=== PATIENT | female | born 1955 | race Caucasian/White ===

== ENCOUNTER → 2016-03-12 | Outpatient (CLI) | payer OTHER ==
[~2016-03-12] VITALS: Ht 167.6 cm; Wt 77.1 kg
[~2016-03-12] MED LIST: *BLDWK1; *BLDWK2; *BLDWK7; *CPAPSUP; *CXR; *MAMMOGRAM; /ADVA50050 INH; /TIOT18INH; /TIOT18INH INH; ACCOLATE PO; ACET65TA OR; ADVAIR200 INHALATION; ALBU17IN2 IN; ALBU17IN2 INH; ALBUTEROL; ALBUTEROL INHALATION; ALTACE10 PO; AMO250 PO; AMO500; AMO500 PO; ASTELIN; ASTELIN NASAL; BACTROOINT TOPICALLY; CAHNTIXC PO; CALC500T49; CHAN0.5P PO; CIPR25SS OR; CIPRO500; COMBIVENT PO; COZA25TA8 PO; DOXYCYC100 PO; EFFE75CA75 PO; EFFEXORXL1 PO; EFFEXORXL3 PO; EFFEXORXL7 PO; EPIPENAD INJECTION; FISH1000 PO; FISHCAP; FLAG500T OR; FLON0.05; HABITROL2 TOPICAL; HCTZ25 PO; HYDR25TA6; HYDR25TA6 OR; HYDR25TAB PO; KEFLEX500 PO; LAMISIL250 PO; LEVAQUI500 PO; LIDOCAINE 2% INJ 100 MG/5 ML SDV (FOR ANES.) As Ordered ONE; LOSA100T36 PO; MULT1TAB10 PO; NORV5TAB; NORVASC10 PO; NORVASC5 PO; OSPH1TAB PO; PHOSOMAX PO; PROPOFOL 200 MG/20 ML VIAL As Ordered ONE; PROTONIX40; PROVERA10 PO; PULMICORT; QVAR80AE7 IN; RESTASIS OU; SEREVENTIN PO; SING10TA31 PO; SING10TA32 PO; SINGULAI10 PO; SPIR25TA2 OR; SPIR25TA2 PO; SPIRIVA INH; SYMB16INH INH; TEMOVATEOI TOPICAL; TESSALO100 PO; THERGRAN PO; TIOT18INH INH; TOPA50TA7 PO; TRAZ50TA; TUMS500C OR; ULTRAM50; ULTRAM50 PO; VITA250C PO; VITA500046 PO; VITA50TA12; WELLBSR150 PO; XOPENEX125 NEB; ZOLO50TA PO; ZOLOFT100; ZOLOFT25 PO; ZOLOFT50 PO; [UNRECOGNIZED DRUG - CODE] PO; [UNRECOGNIZED DRUG - CODE] TOPICALLY; [UNRECOGNIZED DRUG - OTHER]; [UNRECOGNIZED DRUG - SUPPLY]; calcium citrate PO
[2016-03-12] MEDS: NS 1,000 ML IV SCH ×2 (07:00→08:07)
--- NOTE | 2016-03-12 08:32 | ROOR ---
Patient Name: Lynnette Navarro Procedure Date: 03/12/2016 8:19 AM Date of : 1955 Age: 60 Room: [facility] Gender: Female Note Status: Finalized Procedure: Upper GI endoscopy Indications: Suspected esophageal reflux Providers: Alejandro Hernandes Jr, MD Referring MD: Delmar Newman MD Requesting Provider: Medicines: Propofol per Anesthesia Complications: No immediate complications. Procedure: Pre-Anesthesia Assessment: - Prior to the procedure, a History and Physical was performed, and patient medications and allergies were reviewed. The patient is competent. The risks and benefits of the procedure and the sedation options and risks were discussed with the patient. All questions were answered and informed consent was obtained. Patient identification and proposed procedure were verified by the physician and the nurse in the pre-procedure area and in the procedure room. Mental Status Examination: alert and oriented. Airway Examination: normal oropharyngeal airway and neck mobility. Respiratory Examination: clear to auscultation. CV Examination: normal. ASA Grade Assessment: II - A patient with mild systemic disease. After reviewing the risks and benefits, the patient was deemed in satisfactory condition to undergo the procedure. The anesthesia plan was to use moderate sedation / analgesia (conscious sedation). Immediately prior to administration of medications, the patient was re-assessed for adequacy to receive sedatives. The heart rate, respiratory rate, oxygen saturations, blood pressure, adequacy of pulmonary ventilation, and response to care were monitored throughout the procedure. The physical status of the patient was re-assessed after the procedure. The Endoscope was introduced through the mouth, and advanced to the second part of duodenum. The upper GI endoscopy was accomplished without difficulty. The patient tolerated the procedure well. Findings: The upper third of the esophagus, middle third of the esophagus and lower third of the esophagus were normal. Diffuse severe inflammation characterized by congestion (edema), erythema, friability and mucus was found in the cardia, in the gastric fundus, in the gastric body, in the gastric antrum, in the prepyloric region of the stomach and at the pylorus. Biopsies were taken with a cold forceps for histology. The duodenal bulb, first portion of the duodenum and second portion of the duodenum were normal. Impression: - Normal upper third of esophagus, middle third of esophagus and lower third of esophagus. - Gastritis. Biopsied. - Normal duodenal bulb, first portion of the duodenum and second portion of the duodenum. Recommendation: - Discharge patient to home (ambulatory). - Return to my office in 2 weeks. Alejandro Hernandes MD Alejandro Hernandes Jr, MD 03/12/2016 8:32:11 AM This report has been signed electronically. Number of Addenda: 0 Note Initiated On: 03/12/2016 8:19 AM Estimated Blood Loss: Estimated blood loss: none.
--- NOTE | 2016-03-12 08:46 | ROOR ---
Patient Name: Lynnette Navarro Procedure Date: 03/12/2016 8:21 AM Date of : 1955 Age: 60 Room: [facility] Gender: Female Note Status: Finalized Procedure: Colonoscopy Indications: Rectal bleeding Providers: Alejandro Hernandes Jr, MD Referring MD: Delmar Newman MD Requesting Provider: Medicines: Propofol per Anesthesia Complications: No immediate complications. Procedure: Pre-Anesthesia Assessment: - Prior to the procedure, a History and Physical was performed, and patient medications and allergies were reviewed. The patient is competent. The risks and benefits of the procedure and the sedation options and risks were discussed with the patient. All questions were answered and informed consent was obtained. Patient identification and proposed procedure were verified by the physician and the nurse in the pre-procedure area and in the procedure room. Mental Status Examination: alert and oriented. Airway Examination: normal oropharyngeal airway and neck mobility. Respiratory Examination: clear to auscultation. CV Examination: normal. ASA Grade Assessment: II - A patient with mild systemic disease. After reviewing the risks and benefits, the patient was deemed in satisfactory condition to undergo the procedure. The anesthesia plan was to use moderate sedation / analgesia (conscious sedation). Immediately prior to administration of medications, the patient was re-assessed for adequacy to receive sedatives. The heart rate, respiratory rate, oxygen saturations, blood pressure, adequacy of pulmonary ventilation, and response to care were monitored throughout the procedure. The physical status of the patient was re-assessed after the procedure. The Colonoscope was introduced through the anus and advanced to the cecum, identified by appendiceal orifice and ileocecal valve. The colonoscopy was performed without difficulty. The patient tolerated the procedure well. The quality of the bowel preparation was adequate and good. Findings: The perianal and digital rectal examinations were normal. Pertinent negatives include normal sphincter tone, no palpable rectal lesions and no anal lesion or abnormality was detected. Multiple small and large-mouthed diverticula were found in the sigmoid colon, descending colon, transverse colon and ascending colon. The rectum, cecum, appendiceal orifice and ileocecal valve appeared normal. The perianal exam findings include non-thrombosed internal hemorrhoids, internal hemorrhoids that prolapse with straining, but spontaneously regress to the resting position (Grade II) and internal hemorrhoids that prolapse with straining, but require manual replacement into the anal canal (Grade III). Impression: - Diverticulosis in the sigmoid colon, in the descending colon, in the transverse colon and in the ascending colon. - The rectum, cecum, appendiceal orifice and ileocecal valve are normal. - Non-thrombosed internal hemorrhoids, internal hemorrhoids that prolapse with straining, but spontaneously regress to the resting position (Grade II) and internal hemorrhoids that prolapse with straining, but require manual replacement into the anal canal (Grade III) found on perianal exam. - No specimens collected. Recommendation: - Discharge patient to home (ambulatory). - Repeat colonoscopy in 10 years for screening purposes. Alejandro Hernandes MD Alejandro Hernandes Jr, MD 03/12/2016 8:46:00 AM This report has been signed electronically. Number of Addenda: 0 Note Initiated On: 03/12/2016 8:21 AM Estimated Blood Loss: Estimated blood loss: none.
[2016-03-12 09:03] VITALS: BP 156/99
== END | disposition home or self-care (01) ==
LOC: M OPP 07:33
PROVIDERS: ATTEND Surgery
DX: K57.30 Diverticulosis of large intestine without perforation or abscess without bleeding (principal); K64.1 Second degree hemorrhoids; K64.2 Third degree hemorrhoids; K29.70 Gastritis, unspecified, without bleeding; I10 Essential (primary) hypertension; F43.10 Post-traumatic stress disorder, unspecified; F41.9 Anxiety disorder, unspecified; F33.9 Major depressive disorder, recurrent, unspecified; M19.90 Unspecified osteoarthritis, unspecified site; J44.9 Chronic obstructive pulmonary disease, unspecified; G47.30 Sleep apnea, unspecified; F17.200 Nicotine dependence, unspecified, uncomplicated; F17.228 Nicotine dependence, chewing tobacco, with other nicotine-induced disorders; Z79.899 Other long term (current) drug therapy; Z79.51 Long term (current) use of inhaled steroids; Z88.8 Allergy status to other drugs, medicaments and biological substances; Z91.030 Bee allergy status; Z88.5 Allergy status to narcotic agent

== ENCOUNTER → 2016-06-26 | Outpatient (REF) | payer OTHER ==
[~2016-06-26] MED LIST changes: -LIDOCAINE 2% INJ 100 MG/5 ML SDV (FOR ANES.) As Ordered ONE; -PROPOFOL 200 MG/20 ML VIAL As Ordered ONE
[2016-06-26 13:44] LABS: MEAN CORPUSCULAR HEMOGLOBIN 36.3 pg (27.0-33.0); MEAN CORPUSCULAR HGB CONC 33.1 g/dl (32.0-36.5); MEAN CORPUSCULAR VOLUME 109.8 fl (80.0-96.0); RED CELL DISTRIBUTION WIDTH 12.5 % (11.5-14.5); WHITE BLOOD COUNT 6.6 K/mm3 (4.0-10.0)
[2016-06-26 13:56] LABS: ALBUMIN 3.9 GM/DL (3.2-5.2); ALBUMIN/GLOBULIN RATIO 1.18 (1.00-1.93); ALKALINE PHOSPHATASE 84 U/L (45-117); ALT/SGPT 31 U/L (12-78); ANION GAP 10 MEQ/L (8-16); AST/SGOT 19 U/L (15-37); BILIRUBIN,TOTAL 0.8 MG/DL (0.2-1.0); BLOOD UREA NITROGEN 12 MG/DL (7-18); CALCIUM LEVEL 9.6 MG/DL (8.8-10.2); CARBON DIOXIDE LEVEL 28 MEQ/L (21-32); CHLORIDE LEVEL 103 MEQ/L (98-107); CREATININE FOR GFR 0.62 MG/DL (0.55-1.02); FREE T4 0.88 NG/DL (0.76-1.46); GLOMERULAR FILTRATION RATE > 60.0 (>45); GLUCOSE, FASTING 115 MG/DL (80-110); POTASSIUM SERUM 3.4 MEQ/L (3.5-5.1); SODIUM LEVEL 141 MEQ/L (136-145); TOTAL PROTEIN 7.2 GM/DL (6.4-8.2)
== END ==
LOC: M SFHCPLAZ 11:09
PROVIDERS: ATTEND Physician Assistant
DX: F32.9 Major depressive disorder, single episode, unspecified (principal); I10 Essential (primary) hypertension; R43.9 Unspecified disturbances of smell and taste

== ENCOUNTER → 2016-12-29 | Outpatient (CLI) | payer OTHER ==
[~2016-12-29] MED LIST changes: +QVAR1AER2 IN; -QVAR80AE7 IN; -TOPA50TA7 PO; +TOPA50TA8 PO
--- NOTE | 2016-12-29 16:08 | REPMRS ---
Patient History The patient states she had a clinical breast exam in 12/2016. Patient is postmenopausal and is nulliparous. No known family history of cancer. Taking estrogen for 2 years 3 months. Digital Woman Screen Mammo: December 29, 2016 - Exam #: [id number] Bilateral CC and MLO view(s) were taken. Technologist: Lindsey Camejo, Technologist Prior study comparison: December 27, 2015, digital woman screen mammo performed at [facility]. December 25, 2014, digital woman screen mammo performed at [facility]. FINDINGS: The breast tissue is heterogeneously dense. This may lower the sensitivity of mammography. There has been no change in the appearance of the mammogram from the prior studies. There is a moderate amount of residual fibroglandular tissue which is fairly symmetric. There is no interval development of dominant mass, areas of architectural distortion, or clustered microcalcification typical of malignancy. ASSESSMENT: BI-RADS/ACR category 1 mammogram. Negative. Recommendation Routine screening mammogram in 1 year (for women over age 40). This mammogram was interpreted with the aid of an FDA-approved computer-aided dectection system. Electronically Signed By: Raghav Sarmiento MD 12/29/16 [id number]
--- NOTE | 2016-12-31 11:19 | DEXA ---
AP SPINE L1 - L4 1.161 -0.3 1.1 LT FEMUR TOTAL 0.769 -1.9 -0.9 RT FEMUR TOTAL 0.696 -2.5 -1.4 TOTAL BODY TOTAL OTHER DUAL FEMUR FRAX* ASSESSMENT Risk factors: 10 year probability of fracture Major osteoporotic fracture % Hip fracture % COMMENTS: Normal bone densitometry of the spine. There is low bone density of the hips. The decreased density of the spine does represent a significant change. The decreased density of the left hip does represent significant change. The decreased density of the right hip does represent a significant change. The density of the spine has increased 3.5 % since the initial exam on to 2005. The spine density has decreased 11.2 % since the most recent exam on 12/25/2014. The density of the left hip has decreased 7.3 % since the initial exam on 2005. The density of the left hip has decreased 5.9 % since the most recent exam on . The density of the right hip has decreased 11.7 % since the initial exam on . The density of the right hip has decreased 9.5 % since the most recent exam on 12/25/2014. FOLLOW-UP: Recommendation for the next bone density exam: 2 years. JAMIE
== END ==
LOC: M WHC 14:25
PROVIDERS: ATTEND Nurse Practitioner Family
DX: Z12.31 Encounter for screening mammogram for malignant neoplasm of breast (principal); M85.80 Other specified disorders of bone density and structure, unspecified site

== ENCOUNTER → 2016-12-30 | Outpatient (CLI) | payer OTHER ==
--- NOTE | 2016-12-31 08:26 | REP ---
LEFT HIP, TWO VIEWS: HISTORY: Pain. There is no acute fracture or dislocation. The joint space is normal in appearance. IMPRESSION: There is no acute fracture or dislocation. Signed by Tobias Morales MD 12/31/2016 08:57 A
--- NOTE | 2016-12-31 08:46 | REP ---
Clinical: Pain. Technique: Neutral and frog lateral views of the femur. Findings: In conjunction with the left hip series performed on the same day, mild degenerative change to the left hip include minimal joint space narrowing and increase sclerosis to the acetabular roof. No significant osteophytosis or periarticular calcifications are identified. No acute fracture or dislocation. Impression: Mild age-related degenerative changes at the left hip joint. Signed by Corby St MD 12/31/2016 08:38 A
== END ==
LOC: M ADAMS 14:23
PROVIDERS: ATTEND Physician Assistant
DX: M25.552 Pain in left hip (principal); M16.12 Unilateral primary osteoarthritis, left hip

== ENCOUNTER → 2017-06-29 | Outpatient (REF) | payer BC ==
[2017-06-29 19:10] LABS: HEMATOCRIT 42.6 % (36.0-47.0); HEMOGLOBIN 14.1 g/dl (12.0-15.5); MEAN CORPUSCULAR HEMOGLOBIN 36.1 pg (27.0-33.0); MEAN CORPUSCULAR HGB CONC 33.1 g/dl (32.0-36.5); PLATELET COUNT, AUTOMATED 237 10^3/uL (150-450); RED BLOOD COUNT 3.91 10^6/uL (4.00-5.40); RED CELL DISTRIBUTION WIDTH 14.4 % (11.5-14.5); WHITE BLOOD COUNT 7.3 10^3/uL (4.0-10.0)
[2017-06-29 19:24] LABS: TOTAL 25(OH) VITAMIN D 29.9 NG/ML (30.0-100.0)
[2017-06-29 19:48] LABS: ALBUMIN 3.9 GM/DL (3.2-5.2); ALBUMIN/GLOBULIN RATIO 1.08 (1.00-1.93); ALKALINE PHOSPHATASE 76 U/L (45-117); ALT/SGPT 42 U/L (12-78); ANION GAP 7 MEQ/L (8-16); AST/SGOT 26 U/L (7-37); BILIRUBIN,TOTAL 0.5 MG/DL (0.2-1.0); BLOOD UREA NITROGEN 12 MG/DL (7-18); CALCIUM LEVEL 9.5 MG/DL (8.8-10.2); CARBON DIOXIDE LEVEL 29 MEQ/L (21-32); CHLORIDE LEVEL 105 MEQ/L (98-107); CHOLESTEROL LEVEL 227 MG/DL (<200); CHOLESTEROL RISK RATIO 2.026 (<5); CREATININE FOR GFR 0.51 MG/DL (0.55-1.30); FREE T4 0.86 NG/DL (0.76-1.46); GLOMERULAR FILTRATION RATE > 60.0 (>45); GLUCOSE, FASTING 102 MG/DL (70-100); HDL CHOLESTEROL 112 MG/DL (>40); LDL CHOLESTEROL 93.4 MG/DL (<100); NON-HDL-C 115 MG/DL; POTASSIUM SERUM 3.7 MEQ/L (3.5-5.1); SODIUM LEVEL 141 MEQ/L (136-145); THYROID STIMULATING HORMONE 0.584 uIU/ML (0.358-3.740); TOTAL PROTEIN 7.5 GM/DL (6.4-8.2); TRIGLYCERIDES LEVEL 108 MG/DL (<150)
[2017-06-30 11:08] LABS: HEPATITIS C VIRUS ABY INDEX < 0.0 INDEX (<0.8)
== END ==
LOC: M SFHCADAM 14:49
DX: Z87.898 Personal history of other specified conditions (principal); R73.01 Impaired fasting glucose; E78.2 Mixed hyperlipidemia; M25.552 Pain in left hip; Z11.59 Encounter for screening for other viral diseases
CPT/HCPCS: 84443

== ENCOUNTER → 2017-12-30 | Outpatient (CLI) | payer BC | LOC: M WHC 14:35 | DX: Z12.31 Encounter for screening mammogram for malignant neoplasm of breast (principal); Z78.0 Asymptomatic menopausal state; Z92.23 Personal history of estrogen therapy | CPT/HCPCS: 77067 ==

== ENCOUNTER → 2017-12-30 | Outpatient (REF) | payer BC ==
[2018-01-04 10:21] LABS: HPV HYBRID CAPTURE II Negative (Negative)
== END ==
LOC: M SFHCWAGY 15:08
DX: Z01.419 Encounter for gynecological examination (general) (routine) without abnormal findings (principal)
CPT/HCPCS: G0123

== ENCOUNTER → 2018-02-25 | Outpatient (CLI) | payer OTHER ==
[~2018-02-25] MED LIST changes: +EFFE75CA2 PO; -EFFE75CA75 PO; -LOSA100T36 PO; +LOSA100T50 PO; -QVAR1AER2 IN; +QVAR80AE10 IN
--- NOTE | 2018-02-25 16:41 | REP ---
Chest two views HISTORY: COPD Comparison: 12/18/2016 An increase in interstitial markings is present in the lungs consistent with chronic interstitial fibrosis. Patchy density is present in the right lower lobe consistent with an infiltrate. The heart is normal in size. The pulmonary vasculature is normal in appearance. The bony structure is intact. IMPRESSION: 1. Chronic interstitial fibrosis. 2. Right lower lobe infiltrate. Electronically Signed by Tobias Morales MD 02/25/2018 04:33 P
== END ==
LOC: M WUC 15:02
PROVIDERS: ATTEND Internal Medicine Pulmonary Disease
DX: J44.9 Chronic obstructive pulmonary disease, unspecified (principal)

== ENCOUNTER 2018-05-17 18:42 | Inpatient (IN) | payer OTHER ==
[~2018-05-17] VITALS: Ht 167.6 cm; Wt 81.8 kg
[~2018-05-17 18:42] MED LIST changes: -/ADVA50050 INH; -/TIOT18INH; -/TIOT18INH INH; +ADVA1AER2 INH; +SPIR1CAP; +SPIR1CAP INH
[2018-05-17] MEDS ORDERED: ONDANSETRON 4MG/2ML VIAL (J2405) As Ordered ONE (19:12)
[2018-05-17] MEDS ORDERED: ETOMIDATE INJ 20MG/10ML VIAL IV ONE (19:15)
[2018-05-17] MEDS ORDERED: PROPOFOL 1,000 MG in APPROPRIATE DILUENT 1 EA IV SCH (19:15)
[2018-05-17] MEDS ORDERED: ONDANSETRON 4MG/2ML VIAL (J2405) IV ONE (19:15)
[2018-05-17] MEDS ORDERED: SUCCINYLCHOLINE INJ 200 MG/10 ML VIAL (J0330) IV ONE (19:15)
[2018-05-17 19:29] LABS: BASO # 0.1 10^3/uL (0.0-0.2); BASO % 1.3 % (0.0-1.0); EOS # 0.1 10^3/uL (0.0-0.50); HEMATOCRIT 26.7 % (36.0-47.0); HEMOGLOBIN 8.5 g/dl (12.0-15.5); LYMPH % 41.9 % (24.0-44.0); MEAN CORPUSCULAR HEMOGLOBIN 34.8 pg (27.0-33.0); MEAN CORPUSCULAR HGB CONC 31.8 g/dl (32.0-36.5); MEAN CORPUSCULAR VOLUME 109.4 fl (80.0-96.0); MONO # 0.6 10^3/uL (0.0-0.8); MONO % 12.3 % (0.0-5.0); NEUTROPHILS # 1.9 10^3/uL (1.8-7.7); NEUTROPHILS % 41.3 % (36.0-66.0); PLATELET COUNT, AUTOMATED 130 10^3/uL (150-450); RED BLOOD COUNT 2.44 10^6/uL (4.00-5.40); WHITE BLOOD COUNT 4.7 10^3/uL (4.0-10.0)
--- NOTE | 2018-05-17 19:50 | REP ---
Clinical: Tube placement. Comparison: 02/25/2018. Findings: Endotracheal tube 3.3 cm above the heather. Nasogastric tube courses below left hemidiaphragm. Mediastinum and cardiac silhouette are stable and within normal limits for portable technique. Lung jean baptiste demonstrate diffuse chronic interstitial changes superimposed pulmonary vascular congestion and interstitial edema as well as possible scattered atelectasis (right greater than left) cannot be excluded. No effusion. No pneumothorax. Skeletal structures stable. Impression: 1. Endotracheal tube and nasogastric tube in satisfactory position. 2. Diffuse chronic changes similar to prior examination. 3. Cannot exclude superimposed pulmonary vascular congestion/interstitial edema as well as scattered atelectasis (right greater than left). Electronically Signed by Corby St MD 05/17/2018 07:42 P
[2018-05-17 19:58] LABS: ALT/SGPT 31 U/L (12-78); BILIRUBIN,DIRECT < 0.1 MG/DL (0.0-0.2); BILIRUBIN,TOTAL 0.2 MG/DL (0.2-1.0); BLOOD UREA NITROGEN 14 MG/DL (7-18); CALCIUM LEVEL 8.7 MG/DL (8.8-10.2); CARBON DIOXIDE LEVEL 26 MEQ/L (21-32); CHLORIDE LEVEL 107 MEQ/L (98-107); CPK CREATINE PHOSPHOKINASE 102 U/L (26-192); CREATININE FOR GFR 0.67 MG/DL (0.55-1.30); ETHYL ALCOHOL (ETHANOL) 0.213 % (0.000-0.010); GLOMERULAR FILTRATION RATE > 60.0 (>45); GLUCOSE, FASTING 109 MG/DL (70-100); POTASSIUM SERUM 4.1 MEQ/L (3.5-5.1); SODIUM LEVEL 140 MEQ/L (136-145); TOTAL PROTEIN 7.9 GM/DL (6.4-8.2)
[2018-05-17 20:00] LABS: ABG BASE EXCESS -3.5 (-2.0-2.0); ABG HCO3 28.3 MEQ/L (22.0-26.0); ABG O2 SATURATION 95.7 % (95.0-99.0); ABG PARTIAL PRESSURE O2 96.6 mmHg (75.0-100.0); ABG STANDARD HCO3 21.6 MEQ/L (22.0-26.0); ABG TOTAL CO2 30.9 MEQ/L (23.0-31.0)
[2018-05-17 20:03] LABS: ABG PARTIAL PRESSURE CO2 83.3 mmHg (35.0-45.0); ABG pH (ARTERIAL) 7.149 UNITS (7.350-7.450)
[2018-05-17 20:17] LABS: AMPHETAMINES LEVEL URINE NEGATIVE (NEGATIVE); BARBITURATES URINE NEGATIVE (NEGATIVE); BENZODIAZEPINES URINE NEGATIVE (NEGATIVE); CANNABINOIDS URINE NEGATIVE (NEGATIVE); COCAINE METABOLITE URINE NEGATIVE (NEGATIVE); METHADONE URINE NEGATIVE (NEGATIVE); OPIATES URINE NEGATIVE (NEGATIVE); PHENCYCLIDINE URINE NEGATIVE (NEGATIVE)
[2018-05-17 20:18] LABS: OSMOLALITY SERUM 353 MOSM/KG (280-301)
[2018-05-17 20:20] LABS: ACETAMINOPHEN LEVEL < 2.0 UG/ML (10.0-30.0); SALICYLATE LEVEL 2.1 MG/DL (5.0-30.0)
[2018-05-17] MEDS ORDERED: CHARCOAL ACTIVATED LIQUID 25 GM/120 ML BTL PO ONE (20:30)
[2018-05-17] MEDS ORDERED: SODIUM BICARBONATE 8.4% INJ 50 ML SYRINGE IV STA (20:56)
--- NOTE | 2018-05-17 21:01 | REP ---
Clinical: Trauma . Comparison: 10/15/2007 Findings: Age-related atrophy with periventricular leukomalacia and microvascular ischemic changes are appreciated. The ventricles and sulci are symmetric. Sarmiento-white differentiation is maintained. There is no evidence for acute intracranial hemorrhage, mass/mass effect, pathology or infarction. No extra-axial fluid collection. Calvarium is intact. Paranasal sinuses and mastoid air cells are clear. Impression: Age related atrophy and microvascular ischemic changes. No acute intracranial hemorrhage, infarction, or mass/mass effect. Electronically Signed by Corby St MD 05/17/2018 08:53 P
--- NOTE | 2018-05-17 21:03 | REP ---
Clinical: Trauma. Technique: Axial noncontrast images from the skull base to the thoracic inlet with coronal and sagittal re-formations. Findings: Moderate/early advanced multilevel degenerative disc osteophyte complexes are appreciated primarily involving C5-6 and C6-7. Alignment and lordosis maintained. No acute fracture / compression injury or subluxation. Spinal canal is patent. Posterior elements and spinous processes are intact. Paravertebral soft tissues are normal. Endotracheal tube and nasogastric tubes identified. Impression: Moderate/early advanced multilevel degenerative spondylosis. No acute fracture / compression injury or subluxation. Electronically Signed by Corby St MD 05/17/2018 08:55 P
[2018-05-17 21:04] LABS: ABG BASE EXCESS -7.3 (-2.0-2.0); ABG HCO3 18.1 MEQ/L (22.0-26.0); ABG O2 SATURATION 92.5 % (95.0-99.0); ABG PARTIAL PRESSURE O2 78.7 mmHg (75.0-100.0); ABG STANDARD HCO3 18.5 MEQ/L (22.0-26.0); ABG TOTAL CO2 19.2 MEQ/L (23.0-31.0); ABG pH (ARTERIAL) 7.319 UNITS (7.350-7.450)
[2018-05-17 21:14] LABS: CPK CREATINE PHOSPHOKINASE 92 U/L (26-192); MB/CK RELATIVE INDEX 2.72 (< OR =4); TROPONIN I 0.04 NG/ML (< 0.10)
[2018-05-17] MEDS ORDERED: EFFE150C2 PO (21:51)
[2018-05-17] MEDS ORDERED: VENTAER INH (21:52)
[2018-05-17] MEDS ORDERED: ESTR62CR PV (21:52)
[2018-05-17] MEDS ORDERED: EPIP0.3I2 IM (21:52)
[2018-05-17] MEDS ORDERED: QVAR80AE8 INH (21:52)
[2018-05-17] MEDS ORDERED: SPIR12.9 INH (21:52)
[2018-05-17] MEDS ORDERED: MORPHINE 4 MG/ML 1ML VIAL/SYRINGE (J2270) IV PRN (22:00)
--- NOTE | 2018-05-17 23:12 | HPE ---
DATE OF SERVICE: 05/17/2018 Critical care time was 1 hour. This excludes all procedures. I was called attend Ms. Lynnette Navarro in the emergency room. Ms. Navarro has known history of suicidal attempts, prior history of severe pancreatitis, recurring prolonged mechanical ventilation and tracheostomy in 2006 who presents to the emergency room with inability to protect her airway and altered mental status consistent with toxic encephalopathy. She has a history of having an argument with her and found a bottle of Tylenol PM at bedside. She has attempted Tylenol overdoses in the past. I have corrected her osmolar gap for alcohol and there is no elevation in the osmolar gap. There is no evidence of other significant toxicities other than ethyl alcohol. The patient is on propofol. Head CT and neck CT performed as outlined below. It appears that the ingestion is likely greater than four hours ago. The patient has received charcoal through and nasogastric (NG) tube in the emergency room. Acetaminophen level is less than 2.0 at this point in time. PAST MEDICAL HISTORY: A reported history of: 1. Asthma. 2. Chronic obstructive pulmonary disease (COPD) in an old research of records and she has seen Dr. Akhtar in the past. 3. A history of severe obstructive sleep apnea reportedly on bilevel noninvasive therapy. 4. Hypertension with history of hypertensive heart disease with normal systolic function. 5. History of pancreatic pseudocyst. 6. 2006 pancreatitis with prolonged hospitalization and tracheostomy. 7. A history of multiple overdoses 2007, 2010. 8. Post-traumatic stress disorder (PTSD). 9. Splenectomy. 10. Cholecystectomy. 11. Depression. HOME MEDICATIONS LIST: Includes: - albuterol - Qvar - Symbicort - vitamin D - fish oil - hydrochlorothiazide (HCTZ) 25 mg by mouth daily - losartan 100 mg by mouth daily - multivitamin 1 tablet by mouth daily - montelukast 10 mg by mouth daily - Senna 60 mg by mouth daily - Restasis 1 drop each eye twice a day - Spiriva 1 inhalation daily - Topamax 50 mg by mouth twice a day - Effexor 75 mg by mouth daily - calcium citrate 1600 mg by mouth daily REVIEW OF SYSTEMS: Unobtainable. FAMILY HISTORY: Unobtainable. SOCIAL HISTORY: Unobtainable. PHYSICAL EXAMINATION: VITAL SIGNS: Temperature 99.4, pulse is 122 in a sinus rhythm, respiratory rate is 20, blood pressure is 116/79 with an oxygen saturation of 95% on 0.60 FiO2. GENERAL: The patient is sedated on mechanical ventilation. Propofol is running. HEENT: The pupils are sluggish to react but approximately 3 mm and equal. Sclerae clear and anicteric. Mucous membranes are moist. Tongue is midline. NECK: Supple. No tracheal deviation or mass. LYMPH: No cervical, supraclavicular or axillary adenopathy. CARDIAC: Regular S1, S2 without audible murmur, rub or gallop. Point of maximum impulse (PMI) is not displaced. There is no significant systemic edema. PULMONARY: Clear to auscultation without rales, rhonchi or wheezes. No accessory muscle use. No dullness to percussion. ABDOMEN: The abdomen is soft, nontender. Hypoactive bowel sounds with no discernible hepatosplenomegaly. No masses or hernia. Previously well healed scars. EXTREMITIES: No cyanosis or clubbing. SKIN: Pale without rash, jaundice or bruising. MUSCULOSKELETAL: No evidence of joint effusions or recent fracture. NEUROLOGICAL: No unilateral weakness. No myoclonus. Reflexes are hyporeflexic at patellar and brachioradialis. No tremor. Pupils are sluggish but reactive and symmetric. Oculocephalic is abnormal. Corneals are intact. She is not responding to any stimuli. LABORATORY EVALUATION: Shows a pH of 7.32, pCO2 of 36, PO2 of 79. White blood cell (WBC) of 4.7, hemoglobin of 8.5, platelet count of 130. Sodium of 140, potassium 4.1, chloride 107, bicarbonate of 26, BUN of 14, creatinine of 0.67 with a glucose of 109. Serum osmolality is 335. As I mentioned above calculated osmolar gap is 4.4. Ethyl alcohol level is 0.213 with a salicylate level of 2.1, acetaminophen level that is undetectable. A urinalysis (UA) is fairly unremarkable with 2+ protein. Chest x-ray shows some vascular congestion and abnormal peripheral nonspecific patchy infiltrate without significant evidence of pneumonia. No evidence of aspiration. Lungs do not appear hyperinflated. The cardiac silhouette is shifted likely from positioning with the chest x-ray. Head and neck CT reports no evidence of trauma. No evidence of hemorrhage. IMPRESSION: 1. Respiratory failure from metabolic and toxic encephalopathy from overdose. Likely from diphenhydramine. Will continue to monitor for recovery. At that point in time there are no signs of Tylenol toxicity. She is below the nomogram for treatment however will check her Tylenol level in four hours to ensure that she does not require any acetylcysteine. At that point in time t here is no evidence of organ dysfunction other than her metabolic toxic encephalopathy. 2. Anemia. Will continue to monitor for blood loss. Not clear of the exact etiology. 3. Nutrition. Will start tube feeds in the morning as she has recently received charcoal. 4. History of alcohol abuse. May require treatment for detoxification if remains in hospital. 5. Deep vein thrombosis (DVT) prophylaxis with Lovenox. 6. Gastrointestinal (GI) prophylaxis with Protonix. 7. Asthma. Will continue nebulizer therapy while on mechanical ventilation. No evidence of bronchospasm on examination currently. 8. A history of hypertension. Will hold antihypertensives. Currently blood pressure is 116/79 and adequately controlled.
[2018-05-17 23:33] VITALS: BP 90/58
[2018-05-17 23:45] VITALS: BP 106/58
[2018-05-18] VITALS (21 sets, daily range): BP systolic 93–187; BP diastolic 60–104; O2SAT 96–98
[2018-05-18] MEDS: MIDAZOLAM INJ 2 MG/2 ML VIAL (J2250) IV PRN ×3 (00:11→06:21)
[2018-05-18] MEDS: PROPOFOL 1,000 MG in APPROPRIATE DILUENT 1 EA IV SCH ×2 (00:12→08:16)
[2018-05-18 06:12] LABS: ABG BASE EXCESS 1.1 (-2.0-2.0); ABG HCO3 26.8 MEQ/L (22.0-26.0); ABG O2 SATURATION 99.2 % (95.0-99.0); ABG PARTIAL PRESSURE CO2 46.4 mmHg (35.0-45.0); ABG PARTIAL PRESSURE O2 158.2 mmHg (75.0-100.0); ABG STANDARD HCO3 25.5 MEQ/L (22.0-26.0); ABG TOTAL CO2 28.2 MEQ/L (23.0-31.0); ABG pH (ARTERIAL) 7.379 UNITS (7.350-7.450)
[2018-05-18 06:31] LABS: HEMATOCRIT 44.4 % (36.0-47.0); HEMOGLOBIN 14.4 g/dl (12.0-15.5); MEAN CORPUSCULAR HEMOGLOBIN 34.2 pg (27.0-33.0); MEAN CORPUSCULAR HGB CONC 32.4 g/dl (32.0-36.5); MEAN CORPUSCULAR VOLUME 105.5 fl (80.0-96.0); PLATELET COUNT, AUTOMATED 238 10^3/uL (150-450); RED BLOOD COUNT 4.21 10^6/uL (4.00-5.40); WHITE BLOOD COUNT 7.6 10^3/uL (4.0-10.0)
--- NOTE | 2018-05-18 06:42 | ECGEPIP ---
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
[2018-05-18 06:43] LABS: INR 0.96; PROTHROMBIN TIME 12.9 SECONDS (12.1-14.4)
[2018-05-18 06:58] LABS: ACETAMINOPHEN LEVEL < 2.0 UG/ML (10.0-30.0); ALBUMIN 3.1 GM/DL (3.2-5.2); ALT/SGPT 28 U/L (12-78); BILIRUBIN,TOTAL 0.3 MG/DL (0.2-1.0); BLOOD UREA NITROGEN 24 MG/DL (7-18); CALCIUM LEVEL 8.5 MG/DL (8.8-10.2); CARBON DIOXIDE LEVEL 28 MEQ/L (21-32); CHLORIDE LEVEL 106 MEQ/L (98-107); CHOLESTEROL LEVEL 179 MG/DL (< 200); CPK CREATINE PHOSPHOKINASE 88 U/L (26-192); CREATININE FOR GFR 1.36 MG/DL (0.55-1.30); GLOMERULAR FILTRATION RATE 41.8 (>45); GLUCOSE, FASTING 76 MG/DL (70-100); LDH LACTATE DEHYDROGENASE 155 U/L (84-246); PHOSPHORUS LEVEL 4.7 MG/DL (2.5-4.9); POTASSIUM SERUM 4.3 MEQ/L (3.5-5.1); SODIUM LEVEL 142 MEQ/L (136-145); TOTAL PROTEIN 5.7 GM/DL (6.4-8.2); TRIGLYCERIDES LEVEL 303 MG/DL (<150)
--- NOTE | 2018-05-18 08:03 | REP ---
Portable chest x-ray: Single view. History: Respiratory failure. Comparison study: May 17, 2018. Findings: Endotracheal tube remains in good position just above the transverse aorta. NG tube enters the left upper quadrant of the abdomen. EKG electrodes and oxygen delivery tubing are seen. Cardiac mediastinal silhouette is unchanged. There are is pleural thickening on the right and some linear opacity consistent with discoid atelectasis versus fibrosis. Mild pleuroparenchymal fibrosis is seen at both bases. No new infiltrate. Electronically Signed by Fidel Jaramillo MD 05/18/2018 07:54 A
[2018-05-18] MEDS: IPRATROPIUM 0.5MG/ALBUTEROL 2.5MG INH SOL UD 3ML (DUONEB)(J7620) NEB SCH ×4 (08:13→20:00)
--- NOTE | 2018-05-18 08:13 | ECGEPIP ---
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
[2018-05-18] MEDS: ENOXAPARIN 40 MG/0.4 ML SYRINGE (J1650) SC SCH (08:16)
[2018-05-18] MEDS: PANTOPRAZOLE 40MG INJ (PROTONIX) (C9113) IV SCH (08:16)
[2018-05-18] MEDS ORDERED: LOSARTAN 50 MG TAB PO SCH (09:00)
[2018-05-18] MEDS ORDERED: NS 500 ML IV ONE ×2 (09:00→10:15)
[2018-05-18] MEDS ORDERED: CHLORHEXIDINE GLUCONATE 0.12 % 15ML UDC (PERIDEX ORAL RINSE) MT SCH (09:00)
[2018-05-18] MEDS ORDERED: hydroCHLOROthiazide 25 MG TAB PO SCH (09:00)
--- NOTE | 2018-05-18 09:43 | ECGEPIP ---
Stationary ECG Study 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
--- NOTE | 2018-05-18 11:39 | CCN ---
DATE OF SERVICE: 05/18/2018 Ms. Navarro is seen in the ICU. She was intubated after respiratory failure secondary to metabolic and toxic encephalopathy secondary to overdose. It was felt the patient was intoxicated with alcohol. Her initial ethyl alcohol was 0.213. She has apparently overdosed on Tylenol the past; however, her acetaminophen levels remained less than 2.0. The patient was given a sedation vacation this morning. She was able to follow commands and vent settings were changed to pressure support and the patient was able to breathe on her own. PHYSICAL EXAMINATION: VITALS: Temperature is 99.1, pulse 91, respiratory rate 23, blood pressure is 170/84, pulse ox 91%. The patient initially was on ventilator on volume control and was changed to pressure support settings and did well. Initial urine output this morning was low at some about 25 mL over 2 hours and the patient was given a fluid bolus and urine output improved to 100 mL an hour. HEENT: Head is normocephalic, atraumatic. Moist mucous membranes. Pupils are dilated. Patient is initially intubated. NECK: Supple. No cervical lymphadenopathy. No jugular venous distention (JVD). Trachea is midline. HEART: Regular rate and rhythm. S1-S2, systolic murmur. PULMONARY: Clear to auscultation bilaterally. Some wheezes are noted after extubation. ABDOMEN: Positive bowel sounds, soft, nontender. No rebound or guarding. Small abdominal hernia, central abdominal hernia. EXTREMITIES: No clubbing, cyanosis or edema. LABS: WBC 7.6, hemoglobin 14.4, hematocrit 44.4, platelets 238. Sodium 142, potassium 4.3, chloride 106, carbon dioxide 28, BUN 24, creatinine 1.36, glucose 76, calcium 8.5, phosphorus 4.7, total bili 0.3, AST 26, ALT 28, alk phos 82, LD 155, CK 88, total protein 5.7, albumin 3.1, triglycerides 303, cholesterol 179. ABG pH 7.379, pCO2 is 46.4, pO2 is 158.2, HCO3 26.8. PT 12.9, INR 0.96. Chest x-ray shows endotracheal tube is in good position. There is blunting of the bilateral costophrenic angles and some discoid atelectasis of the right lung. ASSESSMENT/PLAN 1. Overdose. The patient was initially intubated but was extubated and did well upon extubation. Still does have some wheezing after extubation. Will continue with scheduled nebs. Will add back her Symbicort and her Singulair and Spiriva. She also is on QVAR as an outpatient, which we do not have on formulary. Therefore, she will be placed on Flovent. The patient will require a sitter. She will possibly require a psychiatric consult. I have discussed this with Dr. Newman who will be taking over and addressing those issues. 2. Acute renal insufficiency. The patient was given a bolus of fluids. The urine output did improve after fluid bolus. 3. Hypertension. The patient's blood pressures were elevated; however, her renal function has gone up some. She is normally on hydrochlorothiazide and losartan; however, due to the elevated creatinine we will hold off restarting those. I have discussed the case with Dr. Newman who be taking the patient on his service. He will determine antihypertensive medications.
[2018-05-18] MEDS: SYMBICORT 160/4.5MCG INHALER 6GM INH SCH ×2 (11:44→21:09)
[2018-05-18] MEDS: FLUTICASONE HFA 220 MCG 12 GM INHALER (FLOVENT) INH SCH ×2 (11:44→21:00)
[2018-05-18] MEDS: TIOTROPIUM INHALER/CAPSULE (SPIRIVA) INH SCH (11:44)
--- NOTE | 2018-05-18 14:49 | CR ---
DATE OF CONSULTATION: 05/18/2018 Lynnette is seen in the intensive care unit (ICU). Case was discussed with Dr. Cutler and KRISTIN Chavira. Her care has been transferred to [facility]. I followed Lynnette for over 25 years. She has a history of alcoholism and goes on frequent binges. I met with her , Gregor, who is very supportive and has seen her through a lot of these episodes. He does not think the patient took an intentional overdose. He also does not think that she took an unintentional overdose. He noted that she had an empty bottle of Tylenol PM but it could have just been the end of that bottle and indeed her acetaminophen levels have been undetectable. It is my impression and he concurs that she probably did not take an intentional overdose and that this was alcohol intoxication with unintentional overdose of prescription medications. The only changes I am making at this point is adding clonidine for her elevated blood pressure. I am holding her diuretics and losartan in the face of her mild acute kidney injury. She has a history of sever asthma so I am avoiding beta blockers to treat the blood pressure. I ordered some Ativan based on Clinical [place] Withdrawal Assessment (CIWA) protocol. I expect she will move out of the ICU tomorrow. Dr. Rios will be assuming her care tomorrow.
[2018-05-18] MEDS: THIAMINE 100 MG TAB PO SCH ×2 (15:19→22:08)
[2018-05-18] MEDS: FOLIC ACID 1 MG TAB PO SCH (15:20)
[2018-05-18] MEDS: MULTIVITAMINS/MINERALS THERAP 1 TAB PO SCH (15:20)
[2018-05-18] MEDS: cloNIDine 0.1 MG TAB PO SCH ×2 (15:20→22:08)
[2018-05-18] MEDS: ACETAMINOPHEN TAB 650MG DOSE (2X325MG) PO PRN ×2 (15:24→22:08)
[2018-05-18] MEDS: MONTELUKAST 10 MG TAB PO SCH (22:09)
[2018-05-18] MEDS: ALBUTEROL 90 MCG/ACT 8GM HFA INHALER INH PRN (22:22)
[2018-05-19 06:00] VITALS: BP 136/86
[2018-05-19 06:16] LABS: HEMATOCRIT 44.8 % (36.0-47.0); HEMOGLOBIN 14.2 g/dl (12.0-15.5); MEAN CORPUSCULAR HEMOGLOBIN 33.7 pg (27.0-33.0); MEAN CORPUSCULAR HGB CONC 31.7 g/dl (32.0-36.5); MEAN CORPUSCULAR VOLUME 106.4 fl (80.0-96.0); PLATELET COUNT, AUTOMATED 245 10^3/uL (150-450); RED BLOOD COUNT 4.21 10^6/uL (4.00-5.40); WHITE BLOOD COUNT 10.2 10^3/uL (4.0-10.0)
[2018-05-19 06:30] VITALS: BP 136/86
[2018-05-19 06:39] LABS: ALBUMIN 2.9 GM/DL (3.2-5.2); ALT/SGPT 22 U/L (12-78); BILIRUBIN,TOTAL 0.7 MG/DL (0.2-1.0); BLOOD UREA NITROGEN 10 MG/DL (7-18); CALCIUM LEVEL 8.6 MG/DL (8.8-10.2); CARBON DIOXIDE LEVEL 32 MEQ/L (21-32); CHLORIDE LEVEL 106 MEQ/L (98-107); CHOLESTEROL LEVEL 139 MG/DL (< 200); CPK CREATINE PHOSPHOKINASE 68 U/L (26-192); CREATININE FOR GFR 0.58 MG/DL (0.55-1.30); GLOMERULAR FILTRATION RATE > 60.0 (>45); GLUCOSE, FASTING 94 MG/DL (70-100); LDH LACTATE DEHYDROGENASE 169 U/L (84-246); PHOSPHORUS LEVEL 2.9 MG/DL (2.5-4.9); POTASSIUM SERUM 3.2 MEQ/L (3.5-5.1); SODIUM LEVEL 142 MEQ/L (136-145); TRIGLYCERIDES LEVEL 125 MG/DL (<150)
[2018-05-19] MEDS: ACETAMINOPHEN TAB 650MG DOSE (2X325MG) PO PRN ×4 (06:39→22:00)
[2018-05-19] MEDS: FLUTICASONE HFA 220 MCG 12 GM INHALER (FLOVENT) INH SCH ×2 (07:51→18:30)
[2018-05-19] MEDS: TIOTROPIUM INHALER/CAPSULE (SPIRIVA) INH SCH (07:51)
[2018-05-19] MEDS: IPRATROPIUM 0.5MG/ALBUTEROL 2.5MG INH SOL UD 3ML (DUONEB)(J7620) NEB SCH ×5 (07:51→21:56)
[2018-05-19] MEDS: SYMBICORT 160/4.5MCG INHALER 6GM INH SCH ×2 (08:00→18:30)
[2018-05-19] MEDS: cloNIDine 0.1 MG TAB PO SCH (08:52)
[2018-05-19] MEDS: ENOXAPARIN 40 MG/0.4 ML SYRINGE (J1650) SC SCH (10:00)
[2018-05-19] MEDS: THIAMINE 100 MG TAB PO SCH ×2 (10:00→21:57)
[2018-05-19] MEDS: FOLIC ACID 1 MG TAB PO SCH (10:00)
[2018-05-19] MEDS: MULTIVITAMINS/MINERALS THERAP 1 TAB PO SCH (10:00)
[2018-05-19] MEDS: PANTOPRAZOLE 40MG INJ (PROTONIX) (C9113) IV SCH (10:00)
[2018-05-19 14:00] VITALS: BP 158/80
[2018-05-19 15:10] VITALS: BP 136/86
[2018-05-19] MEDS ORDERED: POTASSIUM CHLORIDE 10 MEQ SR TABLET PO ONE (17:00)
--- NOTE | 2018-05-19 17:08 | IPNPDOC ---
Subjective Date Seen The patient was seen on 05/19/18. Subjective Chief Complaint/HPI She feels well. No new issues or concerns. Hungry and would like to eat - on clear liquids currently Constitutional: Denies: Chills, Fever Pulmonary: Reports: Dyspnea (chronic - at baseline); Denies: Cough Cardiovascular: Denies: Chest Pain, Palpitations Gastrointestinal: Denies: Nausea, Vomiting, Abdominal Pain, Diarrhea, Constipation Objective Physical Examination General Exam: Positive: Alert, No Acute Distress Chest Exam: Positive: Clear to auscultation; Negative: Rales, Rhonchi, Wheezing Heart Exam: Positive: Rate Normal, Regular Rhythm Abdomen Exam: Positive: Normal bowel sounds, Soft; Negative: Tenderness Extremity Exam: Positive: Edema Neuro Exam: Positive: Other (No tremor or asterixis) Psych Exam: Positive: Mental status NL, Mood NL Assessment /Plan Problems (1) Alcohol intoxication Status: Resolved Problem Text: No signs of DTs - not requiring Ativan I spoke with Cassi damian her at length. She states she did not intentionally overdose. She drank too much and toook a couple advil pms, but she did not take any medications iwth the intention of hurtin herself. She denies depression or SI. Her also does not feel she has expressed any SI or depression symptoms. The empty bottle in the bathroom that her found was empty for a while. He mistakenly thought she may have over dosed on something in that bottle. I have d/c'd the sitter and I don't feel she needs [facility] admission (2) COPD (chronic obstructive pulmonary disease) Status: Chronic Response to Treatment: Stable Problem Text: Usual inhlaers prescribed by pulmonary (3) HTN (hypertension) Status: Chronic Problem Text: D/C Clonidine and restart usual home BP meds. Monitor renal function and electrolytes. Plan/VTE VTE Prophylaxis Ordered?: Yes (Lovenox) Disposition Probable d/c in am VS, I&O, 24H, Fishbone Vital Signs/I&O Vital Signs Date Time Temp Pulse Resp B/P (MAP) Pulse Ox O2 Delivery O2 Flow Rate FiO2 05/19/18 15:10 83 136/86 05/19/18 14:00 97.7 20 94 2.0 05/18/18 15:51 Nasal Cannula 05/18/18 14:00 60 I&O- Last 24 Hours up to 6 AM 05/19/18 06:00 Intake Total 1780 ml Output Total 1750 ml Balance 30 ml Laboratory Data 24H LABS Laboratory Tests 2 05/19/18 05:53: Nucleated Red Blood Cells % (auto) 0.0, Anion Gap 4L, Glomerular Filtration Rate > 60.0, Blood Urea Nitrogen 10#, Creatinine 0.58#, Sodium Level 142, Potassium Level 3.2#L, Chloride Level 106, Carbon Dioxide Level 32, Calcium Level 8.6L, Phosphorus Level 2.9#, Aspartate Amino Transf (AST/SGOT) 19, Alanine Aminotransferase (ALT/SGPT) 22, Lactate Dehydrogenase 169, Total Creatine Kinase 68, Alkaline Phosphatase 86, Total Bilirubin 0.7#, Triglycerides Level 125, Cholesterol Level 139, Total Protein 6.0L, Albumin 2.9L, Albumin/Globulin Ratio 0.94L CBC/BMP Laboratory Tests 05/19/18 05:53 Red Blood Count 4.21, Mean Corpuscular Volume 106.4 H, Mean Corpuscular Hemogl obin 33.7 H, Mean Corpuscular Hemoglobin Concent 31.7 L, Red Cell Distribution Width 13.9, Calcium Level 8.6 L, Phosphorus Level 2.9 #, Aspartate Amino Transf (AST/SGOT) 19, Alanine Aminotransferase (ALT/SGPT) 22, Lactate Dehydrogenase 169, Total Creatine Kinase 68, Alkaline Phosphatase 86, Total Bilirubin 0.7 #, Triglycerides Level 125, Cholesterol Level 139, Total Protein 6.0 L, Albumin 2.9 L SOUMYA PARK PA-C May 19, 2018 17:08
[2018-05-19] MEDS: SODIUM CHLORIDE NASAL 0.65% SPRAY BTL (OCEAN) SCH (21:00)
[2018-05-19] MEDS: MONTELUKAST 10 MG TAB PO SCH (21:57)
[2018-05-19] MEDS: LOSARTAN 50 MG TAB PO SCH (21:59)
[2018-05-19 22:00] VITALS: BP 193/94
[2018-05-19 22:30] VITALS: BP 193/94
[2018-05-20] VITALS (16 sets, daily range): BP systolic 146–201; BP diastolic 81–118
[2018-05-20] MEDS: ACETAMINOPHEN TAB 650MG DOSE (2X325MG) PO PRN ×3 (03:11→15:20)
[2018-05-20 06:18] LABS: HEMOGLOBIN 13.5 g/dl (12.0-15.5); MEAN CORPUSCULAR HEMOGLOBIN 33.6 pg (27.0-33.0); MEAN CORPUSCULAR HGB CONC 32.1 g/dl (32.0-36.5); MEAN CORPUSCULAR VOLUME 104.5 fl (80.0-96.0); PLATELET COUNT, AUTOMATED 282 10^3/uL (150-450); RED BLOOD COUNT 4.02 10^6/uL (4.00-5.40); WHITE BLOOD COUNT 11.1 10^3/uL (4.0-10.0)
[2018-05-20 06:38] LABS: ALT/SGPT 21 U/L (12-78); BILIRUBIN,TOTAL 0.4 MG/DL (0.2-1.0); BLOOD UREA NITROGEN 9 MG/DL (7-18); CALCIUM LEVEL 9.3 MG/DL (8.8-10.2); CARBON DIOXIDE LEVEL 33 MEQ/L (21-32); CHLORIDE LEVEL 105 MEQ/L (98-107); CHOLESTEROL LEVEL 151 MG/DL (< 200); CPK CREATINE PHOSPHOKINASE 60 U/L (26-192); CREATININE FOR GFR 0.53 MG/DL (0.55-1.30); GLOMERULAR FILTRATION RATE > 60.0 (>45); GLUCOSE, FASTING 135 MG/DL (70-100); LDH LACTATE DEHYDROGENASE 187 U/L (84-246); PHOSPHORUS LEVEL 2.6 MG/DL (2.5-4.9); POTASSIUM SERUM 3.7 MEQ/L (3.5-5.1); SODIUM LEVEL 142 MEQ/L (136-145); TOTAL PROTEIN 6.2 GM/DL (6.4-8.2); TRIGLYCERIDES LEVEL 99 MG/DL (<150)
[2018-05-20] MEDS: IPRATROPIUM 0.5MG/ALBUTEROL 2.5MG INH SOL UD 3ML (DUONEB)(J7620) NEB SCH ×4 (08:00→20:00)
[2018-05-20] MEDS: FLUTICASONE HFA 220 MCG 12 GM INHALER (FLOVENT) INH SCH ×2 (08:01→20:30)
[2018-05-20] MEDS: TIOTROPIUM INHALER/CAPSULE (SPIRIVA) INH SCH (08:01)
[2018-05-20] MEDS: SYMBICORT 160/4.5MCG INHALER 6GM INH SCH ×2 (08:01→20:30)
[2018-05-20] MEDS: THIAMINE 100 MG TAB PO SCH ×2 (08:15→21:00)
[2018-05-20] MEDS: MULTIVITAMINS/MINERALS THERAP 1 TAB PO SCH (08:15)
[2018-05-20] MEDS: FOLIC ACID 1 MG TAB PO SCH (08:15)
[2018-05-20] MEDS: LOSARTAN 50 MG TAB PO SCH ×2 (08:15→21:00)
[2018-05-20] MEDS: hydroCHLOROthiazide 25 MG TAB PO SCH (08:15)
[2018-05-20] MEDS: ENOXAPARIN 40 MG/0.4 ML SYRINGE (J1650) SC SCH (08:16)
[2018-05-20] MEDS: SODIUM CHLORIDE NASAL 0.65% SPRAY BTL (OCEAN) SCH ×3 (08:56→21:00)
[2018-05-20] MEDS ORDERED: cloNIDine 0.1 MG TAB PO SCH (09:00)
--- NOTE | 2018-05-20 09:14 | REP ---
I have chest one-view HISTORY: Respiratory Comparison: 05/18/2018 An increase in interstitial markings is present in the lungs consistent with chronic interstitial fibrosis. Patchy density is present in the right lower lobe consistent with atelectasis or infiltrate. Linear density is present in the left lower lobe consistent with atelectasis. There is blunting of the right costophrenic angle due to pleural thickening. The heart is normal in size. The pulmonary vasculature is normal in appearance. Impression: 1. Chronic interstitial fibrosis. 2. Right lower lobe atelectasis or infiltrate. 3. Left lower lobe atelectasis Electronically Signed by Tobias Morales MD 05/20/2018 09:04 A
--- NOTE | 2018-05-20 10:29 | IPNPDOC ---
Subjective Date Seen The patient was seen on 05/20/18. Subjective Chief Complaint/HPI Has slight headache this am and feels nauseated. Constitutional: Denies: Chills, Fever Pulmonary: Denies: Dyspnea, Cough Cardiovascular: Denies: Chest Pain, Palpitations Gastrointestinal: Reports: Nausea; Denies: Vomiting, Abdominal Pain, Diarrhea, Constipation Objective Physical Examination General Exam: Positive: Alert, No Acute Distress Chest Exam: Positive: Clear to auscultation; Negative: Rales, Rhonchi, Wheezing Heart Exam: Positive: Rate Normal, Regular Rhythm Abdomen Exam: Positive: Normal bowel sounds, Soft; Negative: Tenderness Extremity Exam: Positive: Edema Neuro Exam: Positive: Other (No tremor or asterixis) Psych Exam: Positive: Mental status NL, Mood NL Assessment /Plan Problems (1) HTN (hypertension) Status: Chronic Problem Text: continues HD los 50 BID, HCTZ 25 qAM 05/20 - BP elevated this am SBP 190s-favor 2 EthOH wd-increased clon 0.1 BID to 0.2 TID and + met tar 25 q6H Zofran orderd prn nausea (2) Alcohol intoxication Status: Resolved Problem Text: No signs of DTs - not requiring Ativan I spoke with Cassi damian her at length. She states she did not intentionally overdose. She drank too much and took a couple advil pms, but she did not take any medications iwth the intention of hurting herself. She denies depression or SI. Her also does not feel she has expressed any SI or depression symptoms. The empty bottle in the bathroom that her found was empty for a while. He mistakenly thought she may have over dosed on something in that bottle. I have d/c'd the sitter and I don't feel she needs [facility] admission (3) COPD (chronic obstructive pulmonary disease) Status: Chronic Response to Treatment: Stable Problem Text: Usual inhlaers prescribed by pulmonary (4) Alcohol withdrawal Status: Acute Problem Text: remains on CIWA protocol c prn shea Plan/VTE VTE Prophylaxis Ordered?: Yes (Lovenox) VS, I&O, 24H, Fishbone Vital Signs/I&O Vital Signs Date Time Temp Pulse Resp B/P (MAP) Pulse Ox O2 Delivery O2 Flow Rate FiO2 05/20/18 10:10 194/118 (143) 05/20/18 06:00 97.6 86 20 94 05/19/18 22:00 1.0 05/18/18 15:51 Nasal Cannula 05/18/18 14:00 60 I&O- Last 24 Hours up to 6 AM 05/20/18 06:00 Intake Total 1195 ml Output Total 200 ml Balance 995 ml Laboratory Data 24H LABS Laboratory Tests 2 05/20/18 05:42: Nucleated Red Blood Cells % (auto) 0.0, Anion Gap 4L, Glomerular Filtration Rate > 60.0, Blood Urea Nitrogen 9, Creatinine 0.53L, Sodium Level 142, Potassium Level 3.7, Chloride Level 105, Carbon Dioxide Level 33H, Calcium Level 9.3, Phosphorus Level 2.6, Aspartate Amino Transf (AST/SGOT) 15, Alanine Aminotransferase (ALT/SGPT) 21, Lactate Dehydrogenase 187, Total Creatine Kinase 60, Alkaline Phosphatase 89, Total Bilirubin 0.4, Triglycerides Level 99, Cholesterol Level 151, Total Protein 6.2L, Albumin 3.0L, Albumin/Globulin Ratio 0.94L CBC/BMP Laboratory Tests 05/20/18 05:42 Red Blood Count 4.02, Mean Corpuscular Volume 104.5 H, Mean Corpuscular Hemoglobin 33.6 H, Mean Corpuscular Hemoglobin Concent 32.1, Red Cell Distri bution Width 13.4, Calcium Level 9.3, Phosphorus Level 2.6, Aspartate Amino Transf (AST/SGOT) 15, Alanine Aminotransferase (ALT/SGPT) 21, Lactate Dehydrogenase 187, Total Creatine Kinase 60, Alkaline Phosphatase 89, Total Bilirubin 0.4, Triglycerides Level 99, Cholesterol Level 151, Total Protein 6.2 L, Albumin 3.0 L SOUMYA PARK PA-C May 20, 2018 10:29 Josiah Rios M.D. May 20, 2018 16:19
[2018-05-20] MEDS: ONDANSETRON 4 MG TAB (S0181) PO PRN ×2 (10:39→21:11)
[2018-05-20] MEDS: LORazepam 2 MG TAB PO PRN ×2 (11:58→21:11)
[2018-05-20] MEDS: METOPROLOL TART 25 MG TABLET PO SCH ×2 (13:47→17:33)
[2018-05-20] MEDS: cloNIDine 0.2 MG TAB PO SCH ×2 (16:30→21:00)
[2018-05-20] MEDS: MONTELUKAST 10 MG TAB PO SCH (21:00)
[2018-05-21] MEDS: ACETAMINOPHEN TAB 650MG DOSE (2X325MG) PO PRN ×2 (00:14→22:30)
[2018-05-21] MEDS: LORazepam 2 MG TAB PO PRN (05:38)
[2018-05-21] MEDS: METOPROLOL TART 25 MG TABLET PO SCH ×3 (05:38→12:21)
[2018-05-21 05:45] LABS: HEMATOCRIT 41.6 % (36.0-47.0); HEMOGLOBIN 13.6 g/dl (12.0-15.5); MEAN CORPUSCULAR HGB CONC 32.7 g/dl (32.0-36.5); PLATELET COUNT, AUTOMATED 293 10^3/uL (150-450); WHITE BLOOD COUNT 8.6 10^3/uL (4.0-10.0)
[2018-05-21 06:00] VITALS: BP_SYST 140; BP_DIAS 60; BP_DIAS 80
[2018-05-21 06:19] LABS: ALBUMIN 2.9 GM/DL (3.2-5.2); ALT/SGPT 19 U/L (12-78); BILIRUBIN,TOTAL 0.3 MG/DL (0.2-1.0); BLOOD UREA NITROGEN 11 MG/DL (7-18); CALCIUM LEVEL 10.7 MG/DL (8.8-10.2); CARBON DIOXIDE LEVEL 31 MEQ/L (21-32); CHLORIDE LEVEL 102 MEQ/L (98-107); CHOLESTEROL LEVEL 147 MG/DL (< 200); CPK CREATINE PHOSPHOKINASE 50 U/L (26-192); GLOMERULAR FILTRATION RATE > 60.0 (>45); GLUCOSE, FASTING 134 MG/DL (70-100); LDH LACTATE DEHYDROGENASE 194 U/L (84-246); PHOSPHORUS LEVEL 4.8 MG/DL (2.5-4.9); SODIUM LEVEL 139 MEQ/L (136-145); TOTAL PROTEIN 6.5 GM/DL (6.4-8.2); TRIGLYCERIDES LEVEL 125 MG/DL (<150)
[2018-05-21] MEDS: FLUTICASONE HFA 220 MCG 12 GM INHALER (FLOVENT) INH SCH ×2 (07:36→18:22)
[2018-05-21] MEDS: TIOTROPIUM INHALER/CAPSULE (SPIRIVA) INH SCH (07:36)
[2018-05-21] MEDS: SYMBICORT 160/4.5MCG INHALER 6GM INH SCH ×2 (07:36→18:22)
[2018-05-21] MEDS: IPRATROPIUM 0.5MG/ALBUTEROL 2.5MG INH SOL UD 3ML (DUONEB)(J7620) NEB SCH ×4 (07:37→18:22)
[2018-05-21 09:59] VITALS: BP 159/97
[2018-05-21] MEDS: MULTIVITAMINS/MINERALS THERAP 1 TAB PO SCH (10:04)
[2018-05-21] MEDS: ENOXAPARIN 40 MG/0.4 ML SYRINGE (J1650) SC SCH (10:05)
[2018-05-21] MEDS: hydroCHLOROthiazide 25 MG TAB PO SCH (10:05)
[2018-05-21] MEDS: LOSARTAN 50 MG TAB PO SCH ×2 (10:05→22:31)
[2018-05-21] MEDS: FOLIC ACID 1 MG TAB PO SCH (10:05)
[2018-05-21] MEDS: SODIUM CHLORIDE NASAL 0.65% SPRAY BTL (OCEAN) SCH ×3 (10:06→22:32)
[2018-05-21] MEDS: cloNIDine 0.2 MG TAB PO SCH ×3 (10:07→22:31)
[2018-05-21 12:15] VITALS: BP 157/95
[2018-05-21 14:00] VITALS: BP 148/79
[2018-05-21] MEDS ORDERED: LORazepam 2 MG TAB PO PRN (15:00)
--- NOTE | 2018-05-21 15:20 | IPNPDOC ---
Subjective Date Seen The patient was seen on 05/21/18. Subjective Chief Complaint/HPI requesting dc home, but lethargic per nursing p shea 2 po at 530 Constitutional: Denies: Chills Eyes: Denies: Pain ENT: Denies: Head Aches Skin: Denies: Rash Pulmonary: Denies: Dyspnea, Cough Cardiovascular: Denies: Chest Pain Gastrointestinal: Denies: Nausea, Vomiting Genitourinary: Denies: Dysuria Objective Physical Examination General Exam: Positive: Alert, No Acute Distress Chest Exam: Positive: Clear to auscultation; Negative: Rales, Rhonchi, Wheezing Heart Exam: Positive: Rate Normal, Regular Rhythm Abdomen Exam: Positive: Normal bowel sounds, Soft; Negative: Tenderness Extremity Exam: Positive: Edema Neuro Exam: Positive: Other (No tremor or asterixis) Psych Exam: Positive: Mental status NL, Mood NL Assessment /Plan Problems (1) Alcohol withdrawal Status: Acute Problem Text: last drink DOA 05/17/18 afternoon but sounds like she took a pint size amt of bourbon (12 servings) remains on CIWA protocol c prn shea 05/21 decreased shea 2 to 0.5 given lethargic p 2 po at 530 (2) HTN (hypertension) Status: Chronic Problem Text: continues HD los 50 BID, HCTZ 25 qAM 05/21 better controlled but still SBP [id number] 2 wd 05/20 - BP elevated this am SBP 190s-favor 2 EthOH wd-increased clon 0.1 BID to 0.2 TID and + met tar 25 q6H on review of [facility] BPs are labile-last 182/90 12/2017, but typically SBP 150-160 patient has HBPM (3) COPD (chronic obstructive pulmonary disease) Status: Chronic Response to Treatment: Stable Problem Text: Usual inhlaers prescribed by pulmonary Plan/VTE VTE Prophylaxis Ordered?: Yes (Lovenox) VS, I&O, 24H, Fishbone Vital Signs/I&O Vital Signs Date Time Temp Pulse Resp B/P (MAP) Pulse Ox O2 Delivery O2 Flow Rate FiO2 05/21/18 12:30 22 90 05/21/18 12:21 85 05/21/18 12:15 157/95 (115) 05/21/18 06:00 97.2 05/19/18 22:00 1.0 05/18/18 15:51 Nasal Cannula 05/18/18 14:00 60 I&O- Last 24 Hours up to 6 AM 05/21/18 06:00 Intake Total 1640 ml Output Total 2000 ml Balance -360 ml Laboratory Data 24H LABS Laboratory Tests 2 05/21/18 05:23: Nucleated Red Blood Cells % (auto) 0.0, Anion Gap 6L, Glomerular Filtration Rate > 60.0, Blood Urea Nitrogen 11, Creatinine 0.50L, Sodium Level 139, Potassium Level 4.0, Chloride Level 102, Carbon Dioxide Level 31, Calcium Level 10.7#H, Phosphorus Level 4.8#, Aspartate Amino Transf (AST/SGOT) 18, Alanine A minotransferase (ALT/SGPT) 19, Lactate Dehydrogenase 194, Total Creatine Kinase 50, Alkaline Phosphatase 85, Total Bilirubin 0.3, Triglycerides Level 125, Cholesterol Level 147, Total Protein 6.5, Albumin 2.9L, Albumin/Globulin Ratio 0.81L CBC/BMP Laboratory Tests 05/21/18 05:23 Red Blood Count 4.00, Mean Corpuscular Volume 104.0 H, Mean Corpuscular Hemoglobin 34.0 H, Mean Corpuscular Hemoglobin Concent 32.7, Red Cell Distribution Width 13.2, Calcium Level 10.7 #H, Phosphorus Level 4.8 #, Aspartate Amino Transf (AST/SGOT) 18, Alanine Aminotransferase (ALT/SGPT) 19, Lactate Dehydrogenase 194, Total Creatine Kinase 50, Alkaline Phosphatase 85, Total Bilirubin 0.3, Triglycerides Level 125, Cholesterol Level 147, Total Protein 6.5, Albumin 2.9 L Josiah Rios M.D. May 21, 2018 15:20
[2018-05-21 22:00] VITALS: BP_SYST 140; BP_SYST 160; BP_DIAS 80; BP_DIAS 88
[2018-05-21] MEDS: MONTELUKAST 10 MG TAB PO SCH (22:32)
[2018-05-21] MEDS: METOPROLOL SUCC (TopROL XL) 50MG **XL** TAB PO SCH (22:32)
[2018-05-22] MEDS: ALBUTEROL 90 MCG/ACT 8GM HFA INHALER INH PRN
[2018-05-22] MEDS: ACETAMINOPHEN TAB 650MG DOSE (2X325MG) PO PRN (05:06)
[2018-05-22 06:00] VITALS: BP 156/84
[2018-05-22 06:09] LABS: HEMATOCRIT 43.1 % (36.0-47.0); HEMOGLOBIN 13.9 g/dl (12.0-15.5); MEAN CORPUSCULAR HEMOGLOBIN 33.4 pg (27.0-33.0); MEAN CORPUSCULAR HGB CONC 32.3 g/dl (32.0-36.5); MEAN CORPUSCULAR VOLUME 103.6 fl (80.0-96.0); PLATELET COUNT, AUTOMATED 289 10^3/uL (150-450); RED BLOOD COUNT 4.16 10^6/uL (4.00-5.40); WHITE BLOOD COUNT 8.3 10^3/uL (4.0-10.0)
[2018-05-22 07:09] LABS: BLOOD UREA NITROGEN 12 MG/DL (7-18); CREATININE FOR GFR 0.53 MG/DL (0.55-1.30); GLOMERULAR FILTRATION RATE > 60.0 (>45); GLUCOSE, FASTING 110 MG/DL (70-100)
[2018-05-22 07:10] LABS: ALT/SGPT 29 U/L (12-78); BILIRUBIN,TOTAL 0.4 MG/DL (0.2-1.0); CALCIUM LEVEL 9.3 MG/DL (8.8-10.2); CARBON DIOXIDE LEVEL 27 MEQ/L (21-32); CHLORIDE LEVEL 103 MEQ/L (98-107); CHOLESTEROL LEVEL 136 MG/DL (< 200); CPK CREATINE PHOSPHOKINASE 86 U/L (26-192); LDH LACTATE DEHYDROGENASE 255 U/L (84-246); PHOSPHORUS LEVEL 3.6 MG/DL (2.5-4.9); SODIUM LEVEL 137 MEQ/L (136-145); TRIGLYCERIDES LEVEL 103 MG/DL (<150)
[2018-05-22 07:11] LABS: ALBUMIN 2.9 GM/DL (3.2-5.2); TOTAL PROTEIN 6.5 GM/DL (6.4-8.2)
[2018-05-22] MEDS: TIOTROPIUM INHALER/CAPSULE (SPIRIVA) INH SCH (07:56)
[2018-05-22] MEDS: FLUTICASONE HFA 220 MCG 12 GM INHALER (FLOVENT) INH SCH (07:58)
[2018-05-22] MEDS: SYMBICORT 160/4.5MCG INHALER 6GM INH SCH (07:58)
[2018-05-22] MEDS: IPRATROPIUM 0.5MG/ALBUTEROL 2.5MG INH SOL UD 3ML (DUONEB)(J7620) NEB SCH ×2 (08:00→11:24)
[2018-05-22 08:56] VITALS: BP 183/89
[2018-05-22] MEDS: hydroCHLOROthiazide 25 MG TAB PO SCH (08:56)
[2018-05-22] MEDS: METOPROLOL SUCC (TopROL XL) 50MG **XL** TAB PO SCH (08:56)
[2018-05-22] MEDS: cloNIDine 0.2 MG TAB PO SCH (08:56)
[2018-05-22] MEDS: ENOXAPARIN 40 MG/0.4 ML SYRINGE (J1650) SC SCH (08:57)
[2018-05-22] MEDS: LOSARTAN 50 MG TAB PO SCH (08:57)
[2018-05-22] MEDS: FOLIC ACID 1 MG TAB PO SCH (08:57)
[2018-05-22] MEDS: SODIUM CHLORIDE NASAL 0.65% SPRAY BTL (OCEAN) SCH (08:58)
[2018-05-22] MEDS: MULTIVITAMINS/MINERALS THERAP 1 TAB PO SCH (09:00)
[2018-05-22] MEDS ORDERED: CLON0.3T PO (13:30)
[2018-05-22] MEDS ORDERED: METO1TAB7 PO (13:30)
--- NOTE | 2018-05-23 07:45 | DSES ---
DATE OF ADMISSION: 05/17/2018 DATE OF DISCHARGE: 05/22/2018 DISCHARGE DIAGNOSES: Acute respiratory failure for metabolic toxic encephalopathy secondary to alcohol and diphenhydramine overdose requiring mechanical ventilation times one day. Hypertension, labile. Alcohol withdrawal. Nicotine addiction. Chronic obstructive pulmonary disease (COPD). Congestive heart failure (CHF) with chronic secondary diastolic dysfunction. Recurrent pancreatitis. Asthma. Mild persistent chronic major depressive disorder (MDD). Status post splenectomy. HOSPITAL COURSE: The patient required medical ventilation times one day for respiratory failure from overdose. She was quickly extubated. The patient exhibits signs of alcohol withdrawal requiring lorazepam as needed. Additionally her blood pressures were labile throughout the admission. On review of [facility], they have been labile in the office and she has not been following them as an outpatient up to this point. While hospitalized, she was placed on clonidine, more so for withdrawal symptoms, but also for blood pressure treatment, and was titrated up to 0.2 three times a day. Additionally, she was started on metoprolol SR 50 mg twice a day. We could not use a nonselective beta-john given her COPD, asthma and she has a history of edema with amlodipine. The patient was cleared by physical therapy on discharge. The patient was discharged to home on her routine medications. Additionally, she was started on clonidine 0.3 twice a day and metoprolol SR 50 mg twice a day with instructions to check blood pressures three times a day with heart rate and bring into her follow-up appointment with her primary care physician on 05/24/2018. The patient throughout admission repeatedly emphasized that she was not suicidal and this was not a suicide attempt, nor does she have suicidal ideations. She states her mood is stable. She also deferred treatment and counseling for alcohol use disorder. Of note, on admission her urine drug screen (UDS) was otherwise negative as was negative for salicylates and acetaminophen.
== END 2018-05-22 14:30 | disposition home or self-care (01) | DRG 812 ==
LOC: EDBD 18:42 → M ED 18:42 → M ED INP 21:48 → M ICU 22:50 → M MSPAV 05-18 17:42
PROVIDERS: ADMIT Internal Medicine Pulmonary Disease; ATTEND Family Medicine
PROC: 5A1935Z Respiratory Ventilation, Less than 24 Consecutive Hours (ICD-10-PCS; principal; 2018-05-17)
DX: T39.1X1A Poisoning by 4-Aminophenol derivatives, accidental (unintentional), initial encounter (principal); J44.9 Chronic obstructive pulmonary disease, unspecified; I11.0 Hypertensive heart disease with heart failure; F43.10 Post-traumatic stress disorder, unspecified; G47.33 Obstructive sleep apnea (adult) (pediatric); Z90.81 Acquired absence of spleen; Z90.49 Acquired absence of other specified parts of digestive tract; Z79.899 Other long term (current) drug therapy; D64.9 Anemia, unspecified; G92 Toxic encephalopathy; J45.909 Unspecified asthma, uncomplicated; J96.00 Acute respiratory failure, unspecified whether with hypoxia or hypercapnia; T51.0X1A Toxic effect of ethanol, accidental (unintentional), initial encounter; F17.200 Nicotine dependence, unspecified, uncomplicated; F33.9 Major depressive disorder, recurrent, unspecified; I50.32 Chronic diastolic (congestive) heart failure; K86.1 Other chronic pancreatitis; F10.239 Alcohol dependence with withdrawal, unspecified

== ENCOUNTER → 2018-05-24 | Outpatient (REF) | payer OTHER ==
[~2018-05-24] MED LIST changes: +CLON0.3T PO; +EFFE150C2 PO; +EPIP0.3I2 IM; +ESTR62CR PV; +METO1TAB7 PO; +QVAR80AE8 INH; +SPIR12.9 INH; +VENTAER INH
[2018-05-24 16:01] LABS: ALBUMIN 3.4 GM/DL (3.2-5.2); ALT/SGPT 41 U/L (12-78); BILIRUBIN,TOTAL 0.3 MG/DL (0.2-1.0); BLOOD UREA NITROGEN 18 MG/DL (7-18); CALCIUM LEVEL 10.1 MG/DL (8.8-10.2); CARBON DIOXIDE LEVEL 32 MEQ/L (21-32); CHLORIDE LEVEL 102 MEQ/L (98-107); CREATININE FOR GFR 0.63 MG/DL (0.55-1.30); GLOMERULAR FILTRATION RATE > 60.0 (>45); GLUCOSE, FASTING 98 MG/DL (70-100); NT-PRO BNP 819 PG/ML (<125); SODIUM LEVEL 138 MEQ/L (136-145); TOTAL PROTEIN 6.5 GM/DL (6.4-8.2)
[2018-06-01 00:58] LABS: METANEPHRINE PLASMA 43 pg/mL (0-62); NORMETANEPHRINE PLASMA 92 pg/mL (0-145)
== END ==
LOC: M SFHCPLAZ 13:58
PROVIDERS: ATTEND Family Medicine
DX: I10 Essential (primary) hypertension (principal)

== ENCOUNTER → 2018-07-13 | Outpatient (CLI) | payer OTHER ==
[~2018-07-13] MED LIST changes: +GASTROGRAFIN SOLUTION 30ML (Q9963) As Ordered ONE; +ISOVUE-370 76% 100ML VIAL (Q9967) As Ordered ONE
--- NOTE | 2018-07-13 15:41 | REP ---
CT abdomen with IV contrast: With oral contrast. History: Generalized abdomen pain. Comparison CT study January 28, 2016. CT contrast dose: 100 ml of intravenous Isovue [address] findings: Preliminary digital print finishing worker radiograph demonstrates clips in the left upper quadrant and right upper quadrant of the abdomen. There is some fibrotic changes in the lung bases laterally on the print finishing worker view. On lung window settings there is a coronally oriented band of coarse fibrotic change and subpleural consolidation in the right lower lobe. This is unchanged from the January 28, 2016 study. There is much less prominent area of fibrosis in the left lower lobe and another area of pleuroparenchymal fibrosis is seen in the right middle lobe at the right lung base, also unchanged. No pleural effusion is seen. The patient is status post splenectomy. There is a residual or recurrent splenule however in the left upper quadrant measuring 1.9 cm in diameter. This is unchanged from the prior study. No focal hepatic lesion is seen. Gallbladder is also surgically absent. No adrenal lesion is observed. The kidneys enhance symmetrically. They are morphologically intact. There are pancreatic calcifications in the pancreatic head consistent with chronic pancreatitis. These are unchanged. No mass or cyst is observed. No retroperitoneal mass or adenopathy is seen. The stomach and small intestine are unremarkable in the upper abdomen. There is a ventral hernia just to the right of midline in the supraumbilical anterior abdominal wall transmitting a short loop of partially obstructed transverse colon. The transverse colon is mildly distended with air and fluid proximal to this and is largely decompressed distal to it. There is some formed stool in the splenic flexure and descending colon. There are scattered left colonic diverticulosis changes. No other abdominal wall defect is seen. There is diffuse osteopenia. No acute bony abnormality. Impression: Ventral hernia transmitting a partially obstructed loop of transverse colon just to the right of midline in the supraumbilical anterior abdominal wall. A small quantity of abdominal fat as also transmitted. There is a periumbilical hernia transmitting fat again noted. Left colonic diverticulosis is seen. Post splenectomy. Bibasilar pulmonary parenchymal fibrosis. Electronically Signed by Fidel Jaramillo MD 07/13/2018 04:29 P
== END ==
LOC: M RAD 13:30
PROVIDERS: ATTEND Surgery
DX: K43.6 Other and unspecified ventral hernia with obstruction, without gangrene (principal); R10.84 Generalized abdominal pain; J84.10 Pulmonary fibrosis, unspecified; M85.80 Other specified disorders of bone density and structure, unspecified site; K57.30 Diverticulosis of large intestine without perforation or abscess without bleeding
CPT/HCPCS: 74160; Q9963; Q9967

== ENCOUNTER 2018-08-23 07:23 | Day surgery (SDC) | payer OTHER ==
[~2018-08-23] VITALS: Ht 167.6 cm; Wt 71.7 kg
[~2018-08-23 07:23] MED LIST changes: +BUPIVACAINE LIPOSOME/PF 1.3% 20ML VIAL (13.3MG/ML)(EXPAREL)(C9290 PER1MG) As Ordered ONE; +BUPIVACAINE/EPIN 0.25% 30 ML VIAL As Ordered ONE; +D31000CA4 PO; -GASTROGRAFIN SOLUTION 30ML (Q9963) As Ordered ONE; -ISOVUE-370 76% 100ML VIAL (Q9967) As Ordered ONE; +LR 1,000 ML IV ONE; +OYST1TAB PO; +TORS20TA2 PO; +ceFAZolin SOD 1 GM in D5W MINI-BAG PLUS 50 ML IV ONE
[2018-08-23] MEDS ORDERED: METOCLOPRAMIDE INJ 10MG/2ML VIAL (J2765) As Ordered ONE (09:34)
[2018-08-23] MEDS ORDERED: PROPOFOL 200 MG/20 ML VIAL As Ordered ONE (09:34)
[2018-08-23] MEDS ORDERED: ROCURONIUM BROMIDE 50 MG/5 ML VIAL As Ordered ONE ×2 (09:34→10:17)
[2018-08-23] MEDS ORDERED: LIDOCAINE 2% INJ 100 MG/5 ML SDV (FOR ANES.) As Ordered ONE (09:34)
[2018-08-23] MEDS ORDERED: KETOROLAC 60 MG/2 ML VIAL (J1885) As Ordered ONE (09:34)
[2018-08-23] MEDS ORDERED: dexameTHASONE 4 MG/ML 1ML VIAL (J1100) As Ordered ONE (09:34)
[2018-08-23] MEDS ORDERED: fentaNYL 250 MCG/5 ML INJECTION (J3010) As Ordered ONE (09:34)
[2018-08-23] MEDS ORDERED: SUGAMMADEX SODIUM 500 MG/5 ML VIAL (BRIDION) As Ordered ONE (09:34)
[2018-08-23] MEDS ORDERED: ONDANSETRON 4MG/2ML VIAL (J2405) As Ordered ONE (09:34)
[2018-08-23] MEDS ORDERED: BUPIVACAINE HCL 0.25% 10 ML VIAL As Ordered ONE (09:49)
[2018-08-23] MEDS ORDERED: ACETAMINOPHEN 1000MG 100ML IV BTL (OFIRMEV) (J0131 PER 10MG) As Ordered ONE (10:01)
[2018-08-23] MEDS ORDERED: ePHEDrine SULFATE 25 MG/5 ML(5MG/ML) SYRINGE As Ordered ONE (10:01)
[2018-08-23] MEDS ORDERED: HYDROmorphone HCL 2 MG/ML 1ML VIAL (J1170) As Ordered ONE (11:03)
[2018-08-23] MEDS ORDERED: hydrALAZINE INJ 20 MG/ML VIAL As Ordered ONE (11:11)
[2018-08-23] MEDS ORDERED: LABETALOL HCL 100 MG/20 ML VIAL As Ordered ONE (12:14)
[2018-08-23] MEDS: LABETALOL HCL 100 MG/20 ML VIAL IV SCH ×2 (12:28→12:35)
[2018-08-23] MEDS ORDERED: LEVALBUTEROL 1.25 MG/0.5 ML CONCENTRATE NEB As Ordered ONE (12:29)
[2018-08-23 12:35] VITALS: BP 185/90
[2018-08-23] MEDS ORDERED: PERCOCET 5MG/325MG TAB PO PRN ×2 (12:45)
[2018-08-23] MEDS ORDERED: LEVALBUTEROL 1.25 MG/0.5 ML CONCENTRATE NEB NEB ONE (12:45)
[2018-08-23] MEDS ORDERED: MORPHINE 4 MG/ML 1ML VIAL/SYRINGE (J2270) IV PRN (12:45)
[2018-08-23] MEDS ORDERED: fentaNYL 100 MCG/2 ML INJECTION (J3010) IV PRN (12:45)
[2018-08-23] MEDS ORDERED: LR 1,000 ML IV SCH ×2 (12:45)
[2018-08-23] MEDS ORDERED: ONDANSETRON 4MG/2ML VIAL (J2405) IV PRN ×2 (12:45)
[2018-08-23] MEDS ORDERED: METOCLOPRAMIDE INJ 10MG/2ML VIAL (J2765) IV PRN (12:45)
[2018-08-23 14:55] VITALS: BP 139/65
[2018-08-27] MEDS ORDERED: TRAM50TA2 PO (12:59)
== END 2018-08-23 15:58 | disposition home or self-care (01) ==
LOC: M SDC 07:23
PROVIDERS: ATTEND Surgery
DX: K43.2 Incisional hernia without obstruction or gangrene (principal); I11.9 Hypertensive heart disease without heart failure; I50.30 Unspecified diastolic (congestive) heart failure; G47.33 Obstructive sleep apnea (adult) (pediatric); J96.11 Chronic respiratory failure with hypoxia; R91.8 Other nonspecific abnormal finding of lung field; Z91.030 Bee allergy status; Z88.8 Allergy status to other drugs, medicaments and biological substances; Z79.899 Other long term (current) drug therapy; F43.10 Post-traumatic stress disorder, unspecified; F17.210 Nicotine dependence, cigarettes, uncomplicated; Z79.51 Long term (current) use of inhaled steroids; K86.0 Alcohol-induced chronic pancreatitis
CPT/HCPCS: 49654; C1781; C9290; J0131; J0690; J1100; J1170; J1885; J2405; J2765; J3010

== ENCOUNTER → 2018-12-08 | Outpatient (CLI) | payer OTHER ==
[~2018-12-08] MED LIST changes: -BUPIVACAINE LIPOSOME/PF 1.3% 20ML VIAL (13.3MG/ML)(EXPAREL)(C9290 PER1MG) As Ordered ONE; -BUPIVACAINE/EPIN 0.25% 30 ML VIAL As Ordered ONE; +E-Z-GAS II EFFERVESCENT PACKET (SODIUM BICARB./CITRIC ACID/SIMETHICONE) As Ordered ONE; +E-Z-HD 98% w/w 340GM SUSP BTL As Ordered ONE; +E-Z-PAQUE 96% w/w SUSP 176GM BTL As Ordered ONE; -LR 1,000 ML IV ONE; +TRAM50TA2 PO; -ceFAZolin SOD 1 GM in D5W MINI-BAG PLUS 50 ML IV ONE
--- NOTE | 2018-12-10 17:50 | REP ---
Examination Requested: Esophagram Barium Swallow Reason For Exam/Comment: Dysphasia Esophagram: The procedure was performed CHAPARRO Cristina, under the direct supervision of Dr. Sarmiento. The images were reviewed with Dr. Sarmiento. A single PA chest x-ray is submitted as a convalescent sitter film. The superior mediastinal structures are midline. There are chronic bibasilar parenchymal opacities. Liquid barium and gas producing granules were given in the erect position as well as liquid barium in the prone oblique position, in order to perform a double contrast esophagram examination. Oral and pharyngeal stages of the examination were unremarkable. Esophageal transport is efficient and there is no esophagitis, stricture, or mucosal ring noted. There is no hiatal hernia noted. Gastroesophageal reflux was not visualized throughout the course of the exam . Impression: 1. Chronic bibasilar parenchymal opacities. 2. Penetration and aspiration of barium. 0.8 minutes of fluoroscopy time was utilized for this procedure. Some fluoroscopic images are performed with last image hold technology. These images require no additional radiation. Reviewed by CHAPARRO Major 12/08/2018 05:01 P Electronically Signed by Raghav Sarmiento MD 12/10/2018 05:40 P
== END ==
LOC: M RAD 08:35
PROVIDERS: ATTEND Surgery
DX: R13.10 Dysphagia, unspecified (principal)

== ENCOUNTER 2019-01-10 12:52 | Outpatient (RCR) | payer OTHER ==
[~2019-01-10 12:52] MED LIST changes: -E-Z-GAS II EFFERVESCENT PACKET (SODIUM BICARB./CITRIC ACID/SIMETHICONE) As Ordered ONE; -E-Z-HD 98% w/w 340GM SUSP BTL As Ordered ONE; -E-Z-PAQUE 96% w/w SUSP 176GM BTL As Ordered ONE
== END 2019-01-14 ==
LOC: M ST 12:52
PROVIDERS: ATTEND Surgery
DX: R13.10 Dysphagia, unspecified (principal)

== ENCOUNTER → 2019-02-01 | Outpatient (CLI) | payer OTHER ==
--- NOTE | 2019-02-01 19:14 | REP ---
Examination Requested: Cookie Swallow Reason For Exam: Dysphasia The procedure was performed by CHAPARRO Cristina, under the direct supervision of Dr. Sarmiento. The procedure was performed with Nenita Das from speech pathology present. 5 ml aliquots of thin, pudding, mixed fruit, soft food, hard food and pill consistency barium was administered. Penetration was visualized with thin consistency barium. The detailed report of this examination will be provided by speech pathology. 2.5 minutes of fluoroscopy time was utilized for this procedure. Reviewed by CHAPARRO Major 02/01/2019 04:15 P Electronically Signed by Raghav Sarmiento MD 02/01/2019 07:04 P
== END ==
LOC: M ST 10:58
PROVIDERS: ATTEND Emergency Medicine
DX: R13.10 Dysphagia, unspecified (principal)

== ENCOUNTER → 2019-02-02 | Outpatient (CLI) | payer OTHER ==
--- NOTE | 2019-02-02 19:09 | REPMRS ---
Patient History The patient states she had a clinical breast exam in 2018. No known family history of cancer. Taking estrogen for 4 years 3 months. Digital Woman Screen Mammo: February 02, 2019 - Exam #: [id number] Bilateral CC and MLO view(s) were taken. Technologist: Jen Jaime, Technologist Prior study comparison: December 30, 2017, bilateral digital woman screen mammo performed at [facility]. December 29, 2016, digital woman screen mammo performed at [facility] [place]. December 27, 2015, digital woman screen mammo performed at [facility]. FINDINGS: The breast tissue is heterogeneously dense. This may lower the sensitivity of mammography. There is a moderate amount of heterogeneously dense fibroglandular tissue which is fairly symmetric. There is no interval development of dominant mass, architectural distortion, or grouped microcalcification typical of malignancy. There has been no change in the appearance of the mammogram from the prior studies. 3-D tomosynthesis shows no additional findings. Assessment: BI-RADS/ACR category 1 mammogram. Negative Mammogram. Recommendation Routine screening mammogram of both breasts in 1 year (for women over age 40). This patient's Lifetime Breast Cancer RIsk is estimated at 7.4 %. This mammogram was interpreted with the aid of an FDA-approved computer-aided dectection system. Electronically Signed By: Jeet Jaramillo MD 02/02/19 [id number]
== END ==
LOC: M WHC 14:50
PROVIDERS: ATTEND Nurse Practitioner Family
DX: Z12.31 Encounter for screening mammogram for malignant neoplasm of breast (principal)

== ENCOUNTER → 2019-02-13 | Outpatient (CLI) | payer OTHER | LOC: M WHC 12:45 | PROVIDERS: ATTEND Nurse Practitioner Family | DX: M81.0 Age-related osteoporosis without current pathological fracture (principal) ==

== ENCOUNTER → 2019-08-01 | Outpatient (REF) | payer OTHER ==
[~2019-08-01] MED LIST changes: +HYDR-3490 PO; -HYDR25TAB PO
[2019-08-01 17:30] LABS: HEMATOCRIT 48.8 % (36.0-47.0); HEMOGLOBIN 15.4 g/dl (12.0-15.5); MEAN CORPUSCULAR HEMOGLOBIN 33.6 pg (27.0-33.0); MEAN CORPUSCULAR HGB CONC 31.6 g/dl (32.0-36.5); MEAN CORPUSCULAR VOLUME 106.6 fl (80.0-96.0); PLATELET COUNT, AUTOMATED 235 10^3/uL (150-450); RED BLOOD COUNT 4.58 10^6/uL (4.00-5.40); WHITE BLOOD COUNT 8.6 10^3/uL (4.0-10.0)
[2019-08-01 17:39] LABS: ALBUMIN 3.6 GM/DL (3.2-5.2); ALT/SGPT 25 U/L (12-78); BILIRUBIN,TOTAL 0.4 MG/DL (0.2-1.0); BLOOD UREA NITROGEN 12 MG/DL (7-18); CALCIUM LEVEL 9.4 MG/DL (8.8-10.2); CARBON DIOXIDE LEVEL 33 MEQ/L (21-32); CHLORIDE LEVEL 102 MEQ/L (98-107); CHOLESTEROL LEVEL 202 MG/DL (<200); CHOLESTEROL RISK RATIO 2.295 (<5); CREATININE FOR GFR 0.62 MG/DL (0.55-1.30); FREE T4 0.91 NG/DL (0.76-1.46); GLOMERULAR FILTRATION RATE > 60.0 (>45); GLUCOSE, FASTING 105 MG/DL (70-100); HDL CHOLESTEROL 88 MG/DL (>40); LDL CHOLESTEROL 92 MG/DL (<100); NON-HDL-C 114 MG/DL; POTASSIUM SERUM 4.4 MEQ/L (3.5-5.1); SODIUM LEVEL 139 MEQ/L (136-145); TOTAL PROTEIN 7.1 GM/DL (6.4-8.2); TRIGLYCERIDES LEVEL 110 MG/DL (<150)
[2019-08-01 17:42] LABS: FOLATE 8.7 NG/ML (>5.4)
== END ==
LOC: M SFHCADAM 14:01
PROVIDERS: ATTEND Family Medicine
DX: J44.9 Chronic obstructive pulmonary disease, unspecified (principal); K86.0 Alcohol-induced chronic pancreatitis; F32.9 Major depressive disorder, single episode, unspecified; E78.2 Mixed hyperlipidemia

== ENCOUNTER → 2020-01-17 | Outpatient (CLI) | payer MEDICARE, OTHER ==
[~2020-01-17] MED LIST changes: -HYDR-3490 PO; +HYDR25TAB PO
--- NOTE | 2020-01-18 16:24 | SLEEPCENT ---
NOCTURNAL POLYSOMNOGRAPHY [facility] ORDERED BY: Dr. Akhtar Nocturnal polysomnography was performed for evaluation of sleep physiology in this patient suspected of the obstructive sleep syndrome. There was 7 hours and 40 minutes of data reviewed. There was 370.5 minutes of sleep identified. Sleep latency was prolonged at 58 minutes. REM latency was prolonged 300.5 minutes. Sleep architecture was fragmented with poor sleep progression. There was one REM cycle late in the study. Overall sleep efficiency was 81.5%. The electrocardiogram showed a sinus rhythm with some ectopy. Average heart rate 65 beats per minute. EEG showed some alpha intrusion into non-REM stages. No focal events and normal waveforms were seen for wake and sleep. There were 130 respiratory events identified of 10 seconds in duration or greater for an apnea-hypopnea index of 21.1. The events were not exclusive to sleep stage. They were more frequent but not exclusive to the supine posture. Arousals from respiratory events occurred 13.3 times per hour, and oxygen desaturations were seen into the 80s. There was some limb activity appreciated, but limb movement arousal index was only 4. IMPRESSION: Obstructive sleep apnea syndrome (G47.33). Apnea-hypopnea index 21.1. RECOMMENDATION: The patient should be encouraged to return to the sleep disorder center for pressure therapy. In the interim, alcohol and sedative avoidance should be practiced and caution exercised during the operation of motor vehicles.
== END ==
LOC: M SLEEP 20:00
PROVIDERS: ATTEND Internal Medicine Pulmonary Disease
DX: G47.33 Obstructive sleep apnea (adult) (pediatric) (principal)

== ENCOUNTER → 2020-01-23 | Outpatient (CLI) | payer SELFPAY | LOC: M LABSMTC 13:26 | PROVIDERS: ATTEND Pediatrics | DX: Z11.59 Encounter for screening for other viral diseases (principal) ==

== ENCOUNTER → 2020-02-05 | Outpatient (CLI) | payer MEDICARE ==
--- NOTE | 2020-02-05 15:29 | REPMRS ---
Patient History The patient states she had a clinical breast exam in 01/2020 Patient is postmenopausal and is nulliparous. No known family history of cancer. Taking estrogen for 5 years 3 months. 3D TOMOSYNTHESIS WAS PERFORMED. The [facility] lifetime risk for breast cancer is 7.1%. Volpara breast density b. Digital Woman Screen Mammo: February 05, 2020 - Exam #: [id number] Bilateral CC and MLO view(s) were taken. Technologist: Jennifer Mccall, Technologist Prior study comparison: February 02, 2019, bilateral digital woman screen mammo performed at [facility]. December 30, 2017, bilateral digital woman screen mammo performed at [facility]. FINDINGS: There are scattered fibroglandular densities. There has been no change in the appearance of the mammogram from the prior studies. There is a mild amount of residual fibroglandular tissue which is fairly symmetric. There is no interval development of dominant mass, architectural distortion, or clustered microcalcification suggestive of malignancy. Assessment: BI-RADS/ACR category 1 mammogram. Negative Mammogram. Recommendation Routine screening mammogram in 1 year (for women over age 40). This mammogram was interpreted with the aid of an FDA-approved computer-aided dectection system. Electronically Signed By: Raghav Sarmiento MD 02/05/20 [id number]
== END ==
LOC: M WHC 13:01
PROVIDERS: ATTEND Nurse Practitioner Family
DX: Z12.31 Encounter for screening mammogram for malignant neoplasm of breast (principal); Z78.0 Asymptomatic menopausal state; Z92.23 Personal history of estrogen therapy

== ENCOUNTER → 2020-03-14 | Outpatient (CLI) | payer MEDICARE ==
--- NOTE | 2020-03-15 16:26 | SLEEPCENT ---
DATE: 03/14/2020 ORDERED BY: Dr. Akhtar Nocturnal polysomnography was performed for the titration of pressure therapy in this patient with obstructive sleep apnea syndrome, apnea-hypopnea index 21.9. For testing, patient a ResMed Mirage FX nasal mask of standard size was used. There was 9 cm of water pressure applied to the circuit with 2 liters of oxygen bled through the system, and the lights were extinguished. There was 7 hours and 51 minutes data reviewed. There was 529.5 minutes of sleep identified. Sleep latency was short at 0.5 minutes. REM latency was mildly delayed at 176 minutes. Sleep architecture improved later in the study. There were some microarousals, but three REM cycles were appreciated. Overall sleep efficiency was 92.6%. The electrocardiogram showed a sinus rhythm with a prolonged TN interval. Average heart rate 60 beats per minute. EEG showed normal waveforms for wake and sleep. Best sleep was appreciated on a CPAP pressure of 11 with 2 liters of oxygen bled through the system. There was some minor limb activity noted predominantly early in the study. Limb movement arousal index on this occasion was 8.1. IMPRESSION: Obstructive sleep apnea syndrome (G47.33). RECOMMENDATION: Nightly use of pressure therapy, 11 cm of water with 2 liters of oxygen bled through the CPAP system.
== END ==
LOC: M SLEEP 20:00
PROVIDERS: ATTEND Internal Medicine Pulmonary Disease
DX: G47.33 Obstructive sleep apnea (adult) (pediatric) (principal)

== ENCOUNTER → 2020-04-30 | Outpatient (CLI) | payer MEDICARE ==
--- NOTE | 2020-04-17 11:52 | SLEEPCENT ---
NOCTURNAL POLYSOMNOGRAPHY DATE: 04/16/2020 ORDERED BY: Saroj Akhtar M.D. Nocturnal polysomnography was performed for the re-titration of pressure therapy in this patient with a history of obstructive sleep apnea syndrome. For testing a ResMed AirFit N20 nasal mask of small size was used, a chin strap was applied, and 9 cm of water pressure were applied to the circuit, and the lights were extinguished. 7 hours and 51 minutes of data were reviewed. There were 419 minutes of sleep identified. Sleep latency was short at 1 minute. REM sleep was delayed at 185 minutes. Sleep architecture improved with optimal pressure therapy. There were three REM cycles appreciated. Overall sleep efficiency was 90%. The patient's electrocardiogram showed a sinus rhythm with an average heart rate of 75 beats per minute; rate range 60 to 85. EEG showed reasonably normal waveforms for wake and sleep. Respiratory events were optimally palliated with CPAP at a pressure of +8. Despite optimal palliation of obstructive events, oxygen desaturations prompted the addition of supplemental oxygen. Best sleep was seen on CPAP at a pressure of 8 with 3 liters of oxygen bled through the system. Significant activity was seen in the limb leads. Limb movement arousal index on this occasion was 4.4. IMPRESSION: Obstructive sleep apnea syndrome (G47.33). RECOMMENDATION: Nightly use of pressure therapy 8 cm of water with 3 liters of oxygen bled into the CPAP circuit.
[~2020-04-30] MED LIST changes: +HYDR-3490 PO; -HYDR25TAB PO
--- NOTE | 2020-05-02 09:38 | SLEEPCENT ---
NOCTURNAL POLYSOMNOGRAPHY CPAP TITRATION DATE: 04/30/2020 ORDERED BY: Saroj Akhtar M.D. Nocturnal polysomnography was performed for the titration of pressure therapy in this patient with obstructive sleep apnea syndrome. For testing a ResMed AirFit N20 nasal mask of small size was used, 8 cm of water pressure were applied to the circuit, and the lights were extinguished. 7 hours and 59 minutes of data were reviewed. There were 433 minutes of sleep identified. Sleep latency was short at 5.5 minutes. REM latency was delayed at 249 minutes. Sleep architecture improved late in the study on optimal pressure therapy and there were two REM cycles appreciated. Overall sleep efficiency was 91.9%. The electrocardiogram showed a sinus rhythm with an average heart rate of 66 beats per minute. Occasional unifocal PVCs were seen. EEG showed normal waveforms for wake and sleep. Obstructive respiratory events were fully palliated with CPAP at a pressure of +8. Having fully palliated the obstructive respiratory events, oxygen desaturations were seen prompting the addition of supplemental oxygen. Best sleep and best saturation were seen on a CPAP at a pressure of +8 with 2 liters of oxygen bled through the system. IMPRESSION: Obstructive sleep apnea syndrome (G47.33). RECOMMENDATION: Nightly use of CPAP 8 cm of water with 2 liters of oxygen bled through the system.
== END ==
LOC: M SLEEP 04-16 20:00
PROVIDERS: ATTEND Internal Medicine Pulmonary Disease
DX: G47.33 Obstructive sleep apnea (adult) (pediatric) (principal); J44.9 Chronic obstructive pulmonary disease, unspecified

== ENCOUNTER → 2020-06-12 | Outpatient (REF) | payer MEDICARE ==
[2020-06-12 16:52] LABS: HEMOGLOBIN 16.7 g/dl (12.0-15.5); MEAN CORPUSCULAR HEMOGLOBIN 33.9 pg (27.0-33.0); MEAN CORPUSCULAR HGB CONC 32.1 g/dl (32.0-36.5); MEAN CORPUSCULAR VOLUME 105.5 fl (80.0-96.0); PLATELET COUNT, AUTOMATED 327 10^3/uL (150-450); RED BLOOD COUNT 4.93 10^6/uL (4.00-5.40); WHITE BLOOD COUNT 13.1 10^3/uL (4.0-10.0)
[2020-06-12 17:34] LABS: ALBUMIN 3.8 GM/DL (3.2-5.2); ALT/SGPT 28 U/L (12-78); BILIRUBIN,TOTAL 0.3 MG/DL (0.2-1.0); BLOOD UREA NITROGEN 14 MG/DL (7-18); CALCIUM LEVEL 11.1 MG/DL (8.8-10.2); CARBON DIOXIDE LEVEL 40 MEQ/L (21-32); CHLORIDE LEVEL 97 MEQ/L (98-107); CHOLESTEROL LEVEL 262 MG/DL (<200); CREATININE FOR GFR 0.64 MG/DL (0.55-1.30); FREE T4 0.99 NG/DL (0.76-1.46); GLOMERULAR FILTRATION RATE > 60.0 (>45); GLUCOSE, FASTING 109 MG/DL (70-100); HDL CHOLESTEROL 111 MG/DL (>40); LDL CHOLESTEROL 127 MG/DL (<100); NON-HDL-C 151 MG/DL; POTASSIUM SERUM 4.8 MEQ/L (3.5-5.1); SODIUM LEVEL 139 MEQ/L (136-145); THYROID STIMULATING HORMONE 0.426 uIU/ML (0.358-3.740); TOTAL PROTEIN 7.5 GM/DL (6.4-8.2); TRIGLYCERIDES LEVEL 121 MG/DL (<150)
[2020-06-12 18:55] LABS: HEMOGLOBIN A1c 5.6 %
== END ==
LOC: M SFHCADAM 14:48
PROVIDERS: ATTEND Family Medicine
DX: E78.2 Mixed hyperlipidemia (principal); F32.9 Major depressive disorder, single episode, unspecified; F34.1 Dysthymic disorder; R73.01 Impaired fasting glucose; Z90.81 Acquired absence of spleen

== ENCOUNTER → 2020-06-24 | Outpatient (CLI) | payer MEDICARE ==
[2020-06-24 15:24] LABS: ALBUMIN 3.5 GM/DL (3.2-5.2); BLOOD UREA NITROGEN 8 MG/DL (7-18); CALCIUM LEVEL 9.2 MG/DL (8.8-10.2); CARBON DIOXIDE LEVEL 35 MEQ/L (21-32); CHLORIDE LEVEL 104 MEQ/L (98-107); CREATININE FOR GFR 0.54 MG/DL (0.55-1.30); GLOMERULAR FILTRATION RATE > 60.0 (>45); GLUCOSE, FASTING 99 MG/DL (70-100); PHOSPHORUS LEVEL 2.3 MG/DL (2.5-4.9); POTASSIUM SERUM 3.8 MEQ/L (3.5-5.1); SODIUM LEVEL 139 MEQ/L (136-145)
[2020-06-24 15:36] LABS: PTH INTACT 72.1 PG/ML (18.5-88.0); TOTAL 25(OH) VITAMIN D 35.5 NG/ML (30.0-100.0)
== END ==
LOC: M LAB 14:23
PROVIDERS: ATTEND Family Medicine
DX: E83.52 Hypercalcemia (principal)

== ENCOUNTER → 2020-11-26 | Outpatient (CLI) | payer MEDICARE ==
--- NOTE | 2020-11-26 14:11 | REP ---
INDICATION: NICOTINE DEPEND. COMPARISON: Multiple the latest 04/04/2019 also low-dose screening CT of the lungs TECHNIQUE: Axial noncontrast images from the thoracic inlet to the upper abdomen using low-dose lung screening technique (LDCT). As per the protocol only lung window images were sent to the read station for interpretation. FINDINGS: There are numerous scattered lung nodules, curvilinear densities, patchy asymmetric densities, and areas of bronchiectasis with peribronchiolar wall thickening and all of which appears essentially unchanged. I see no definite new abnormal nodule, mass, or opacity. Grossly, the mediastinum and pulmonary lonnie are unchanged. Grossly, the imaged upper abdomen and imaged osseous structures are unchanged there is evidence of right paratracheal adenopathy. IMPRESSION: 1. Chronic lung field opacities as described above. There is no revised Fleischner society criteria on the recommendation for follow-up of such abnormalities. Follow-up should be based on clinical assessment. 2. Evidence of chronic lower lobe bronchiolar and peribronchiolar inflammatory changes. 3. Stable mediastinal adenopathy. <Electronically signed by Elder Pruitt > 11/26/20 [id number]
== END ==
LOC: M RAD 13:03
PROVIDERS: ATTEND Internal Medicine Pulmonary Disease
DX: Z12.2 Encounter for screening for malignant neoplasm of respiratory organs (principal); F17.218 Nicotine dependence, cigarettes, with other nicotine-induced disorders; R91.8 Other nonspecific abnormal finding of lung field

== ENCOUNTER → 2020-12-26 | Outpatient (REF) | payer MEDICARE ==
[2020-12-26 18:29] LABS: BASO # 0.2 10^3/uL (0.0-0.2); BASO % 1.6 % (0.0-1.0); EOS # 0.3 10^3/uL (0.0-0.5); EOS % 3.7 % (0.0-3.0); HEMATOCRIT 46.7 % (36.0-47.0); HEMOGLOBIN 14.8 g/dl (12.0-15.5); LYMPH % 32.9 % (24.0-44.0); MEAN CORPUSCULAR HGB CONC 31.7 g/dl (32.0-36.5); MONO # 0.9 10^3/uL (0.0-0.8); MONO % 10.1 % (2.0-8.0); NEUTROPHILS # 4.7 10^3/uL (1.5-8.5); NEUTROPHILS % 51.4 % (36.0-66.0); PLATELET COUNT, AUTOMATED 242 10^3/uL (150-450); RED BLOOD COUNT 4.49 10^6/uL (4.00-5.40); WHITE BLOOD COUNT 9.1 10^3/uL (4.0-10.0)
[2020-12-26 18:47] LABS: INR 0.9; PROTHROMBIN TIME 12.5 SECONDS (12.7-14.5)
[2020-12-26 19:00] LABS: ALBUMIN 3.4 GM/DL (3.2-5.2); ALT/SGPT 19 U/L (12-78); BILIRUBIN,TOTAL 0.3 MG/DL (0.2-1.0); BLOOD UREA NITROGEN 25 MG/DL (7-18); CALCIUM LEVEL 10.1 MG/DL (8.8-10.2); CARBON DIOXIDE LEVEL 36 MEQ/L (21-32); CHLORIDE LEVEL 101 MEQ/L (98-107); CHOLESTEROL LEVEL 204 MG/DL (<200); CHOLESTEROL RISK RATIO 2.956 (<5); CREATININE FOR GFR 0.77 MG/DL (0.55-1.30); GLOMERULAR FILTRATION RATE > 60.0 (>45); GLUCOSE, FASTING 87 MG/DL (70-100); HDL CHOLESTEROL 69 MG/DL (>40); LDL CHOLESTEROL 119 MG/DL (<100); MAGNESIUM LEVEL 2.3 MG/DL (1.8-2.4); NON-HDL-C 135 MG/DL; POTASSIUM SERUM 4.7 MEQ/L (3.5-5.1); SODIUM LEVEL 138 MEQ/L (136-145); TRIGLYCERIDES LEVEL 81 MG/DL (<150)
[2020-12-26 19:07] LABS: VITAMIN B12 LEVEL 367 PG/ML (247-911)
[2020-12-26 19:08] LABS: FOLATE 7.2 NG/ML (>5.4)
[2020-12-26 19:25] LABS: HEMOGLOBIN A1c 5.5 %
== END ==
LOC: M SFHCADAM 15:41
PROVIDERS: ATTEND Family Medicine
DX: R73.01 Impaired fasting glucose (principal); K86.0 Alcohol-induced chronic pancreatitis; F34.1 Dysthymic disorder; E78.2 Mixed hyperlipidemia; Z87.898 Personal history of other specified conditions

== ENCOUNTER → 2021-02-18 | Outpatient (CLI) | payer MEDICARE ==
--- NOTE | 2021-02-18 16:40 | REPMRS ---
Patient History The patient states she had a clinical breast exam in February 2021. Patient is postmenopausal and is nulliparous. No known family history of cancer. Took estrogen for 5 years 3 months. Tomosynthesis is performed. Volpara breast density is b. [facility] lifetime risk of breast cancer 6.7%. Moderna vaccines 03/29/20 left arm. 04/26/20 left arm. 12/10/20 left arm. Patient states no breast complaints today. Patient has signed MRS History Sheet. Digital Woman Screen Mammo: February 18, 2021 - Exam #: [id number] Bilateral CC and MLO view(s) were taken. Technologist: RT Jack Prior study comparison: February 05, 2020, bilateral digital woman screen mammo performed at [facility]. February 02, 2019, bilateral digital woman screen mammo performed at [facility]. FINDINGS: The breast tissue is heterogeneously dense. This may lower the sensitivity of mammography. There has been no change in the appearance of the mammogram from the prior studies. There is a moderate amount of residual fibroglandular tissue which is fairly symmetric. There is no interval development of dominant mass, areas of architectural distortion, or clustered microcalcification typical of malignancy. Assessment: BI-RADS/ACR category 1 mammogram. Negative Mammogram. Recommendation Routine screening mammogram in 1 year (for women over age 40). This mammogram was interpreted with the aid of an FDA-approved computer-aided dectection system. Electronically Signed By: Raghav Sarmiento MD 02/18/21 [id number]
--- NOTE | 2021-02-18 18:18 | DEXAMM ---
INDICATION: AGE RELATED OSTEOPOROSIS. COMPARISON: 02/13/2019 as well as other prior exams. TECHNIQUE: Bone density was measured using dual-energy x-ray absorptiometry (DEXA). FINDINGS: AP SPINE L1-L4 BMD 1.142 g/cm2 Young Adult T-Score -0.4 Age Matched Z-Score 1.2. LT FEMUR, TOTAL BMD 0.696 g/cm2 Young Adult T-Score -2.5 Age Matched Z-Score -1.2. LT NECK BMD 0.642 g/cm2 Young Adult T-Score -2.9 Age Matched Z-Score -1.3. RT FEMUR, TOTAL BMD 0.658 g/cm2 Young Adult T-Score -2.8 Age Matched Z-Score -1.5. RT NECK BMD 0.637 g/cm2 Young Adult T-Score -2.9 Age Matched Z-Score -1.4. IMPRESSION: There is normal bone density of the spine. There is osteoporosis of the left hip. There is osteoporosis of the right hip. The density of the spine has increased 1.8% since the initial exam on 04/09/2005. The density of the spine increased 1.0% since most recent exam on 02/13/2019. The density of the left hip has decreased 16.1% since initial exam on 04/09/2005. The density of the left hip has decreased 4.4% since most recent exam on 02/13/2019. The density of the right hip has decreased 16.5% since the initial exam on 04/09/2005. The density of the right hip has decreased 3.9% since the most recent exam on 02/13/2019. FOLLOW-UP: Recommendation for the next bone density exam: 1 year. <Electronically signed by Raghav Sarmiento > 02/18/21 [id number]
== END ==
LOC: M WHC 14:40
PROVIDERS: ATTEND Nurse Practitioner Women's Health
DX: Z12.31 Encounter for screening mammogram for malignant neoplasm of breast (principal); Z78.0 Asymptomatic menopausal state; M81.0 Age-related osteoporosis without current pathological fracture; Z92.23 Personal history of estrogen therapy

== ENCOUNTER → 2021-06-03 | Outpatient (CLI) | payer MEDICARE ==
[~2021-06-03] MED LIST changes: +LOSA100T45 PO; -LOSA100T50 PO
== END ==
LOC: M RAD 13:28
PROVIDERS: ATTEND Surgery
DX: L97.312 Non-pressure chronic ulcer of right ankle with fat layer exposed (principal)

== ENCOUNTER → 2021-09-18 | Outpatient (CLI) | payer MEDICARE | LOC: M RAD 11:39 | PROVIDERS: ATTEND Surgery | DX: L97.312 Non-pressure chronic ulcer of right ankle with fat layer exposed (principal); I70.238 Atherosclerosis of native arteries of right leg with ulceration of other part of lower leg; M79.604 Pain in right leg ==

== ENCOUNTER → 2021-11-05 | Outpatient (CLI) | payer MEDICARE ==
[2021-11-05 16:53] LABS: HEMATOCRIT 44.5 % (36.0-47.0); HEMOGLOBIN 13.9 g/dl (12.0-15.5); MEAN CORPUSCULAR HEMOGLOBIN 33.1 pg (27.0-33.0); MEAN CORPUSCULAR HGB CONC 31.2 g/dl (32.0-36.5); PLATELET COUNT, AUTOMATED 321 10^3/uL (150-450); WHITE BLOOD COUNT 13.6 10^3/uL (4.0-10.0)
[2021-11-05 17:03] LABS: HEMOGLOBIN A1c 5.5 %
[2021-11-05 17:29] LABS: ALBUMIN 3.4 GM/DL (3.2-5.2); ALT/SGPT 18 U/L (12-78); BILIRUBIN,TOTAL 0.2 MG/DL (0.2-1.0); BLOOD UREA NITROGEN 23 MG/DL (7-18); CALCIUM LEVEL 9.6 MG/DL (8.8-10.2); CARBON DIOXIDE LEVEL 33 MEQ/L (21-32); CHLORIDE LEVEL 102 MEQ/L (98-107); CHOLESTEROL LEVEL 171 MG/DL (<200); CHOLESTEROL RISK RATIO 2.552 (<5); CREATININE FOR GFR 0.84 MG/DL (0.55-1.30); GLOMERULAR FILTRATION RATE > 60.0 (>45); GLUCOSE, FASTING 92 MG/DL (70-100); HDL CHOLESTEROL 67 MG/DL (>40); LDL CHOLESTEROL 77 MG/DL (<100); NON-HDL-C 104 MG/DL; SODIUM LEVEL 140 MEQ/L (136-145); TOTAL PROTEIN 7.4 GM/DL (6.4-8.2); TRIGLYCERIDES LEVEL 134 MG/DL (<150)
[2021-11-05 17:59] LABS: VITAMIN B12 LEVEL 366 PG/ML (247-911)
[2021-11-07 05:07] LABS: FOLATE 6.3 ng/mL (>3.0)
== END ==
LOC: M WUC 14:24
PROVIDERS: ATTEND Family Medicine
DX: M79.2 Neuralgia and neuritis, unspecified (principal); F34.1 Dysthymic disorder; E78.2 Mixed hyperlipidemia; R73.01 Impaired fasting glucose; I10 Essential (primary) hypertension

== ENCOUNTER → 2021-12-17 | Outpatient (CLI) | payer MEDICARE | LOC: M RAD 12:42 | PROVIDERS: ATTEND Internal Medicine Pulmonary Disease | DX: Z12.2 Encounter for screening for malignant neoplasm of respiratory organs (principal); F17.218 Nicotine dependence, cigarettes, with other nicotine-induced disorders ==

== ENCOUNTER → 2021-12-24 | Outpatient (REF) | payer MEDICARE ==
[2021-12-24 18:55] LABS: BLOOD UREA NITROGEN 24 MG/DL (7-18); CREATININE FOR GFR 0.94 MG/DL (0.55-1.30); GLOMERULAR FILTRATION RATE > 60.0 (>45)
== END ==
LOC: M SFHCWAGY 17:55
PROVIDERS: ATTEND Physician Assistant
DX: I70.238 Atherosclerosis of native arteries of right leg with ulceration of other part of lower leg (principal)

== ENCOUNTER → 2022-01-05 | Outpatient (CLI) | payer MEDICARE ==
[~2022-01-05] MED LIST changes: +ISOVUE-370 76% 100ML VIAL As Ordered ONE
== END ==
LOC: M RAD 15:59
PROVIDERS: ATTEND Physician Assistant
DX: I70.238 Atherosclerosis of native arteries of right leg with ulceration of other part of lower leg (principal); I70.0 Atherosclerosis of aorta; Z90.49 Acquired absence of other specified parts of digestive tract; K57.30 Diverticulosis of large intestine without perforation or abscess without bleeding
CPT/HCPCS: 75635; Q9967

== ENCOUNTER → 2022-02-20 | Outpatient (CLI) | payer MEDICARE ==
[~2022-02-20] MED LIST changes: -ISOVUE-370 76% 100ML VIAL As Ordered ONE
== END ==
LOC: M WHC 12:38
PROVIDERS: ATTEND Family Medicine
DX: Z12.31 Encounter for screening mammogram for malignant neoplasm of breast (principal)

== ENCOUNTER → 2022-06-02 | Outpatient (REF) | payer MEDICARE ==
[~2022-06-02] MED LIST changes: +MONT-5 PO; -SING10TA32 PO
== END ==
LOC: M PLALAB 15:58
PROVIDERS: ATTEND Nurse Practitioner Family
DX: Z12.4 Encounter for screening for malignant neoplasm of cervix (principal); R87.615 Unsatisfactory cytologic smear of cervix
CPT/HCPCS: 87624; G0123

== ENCOUNTER → 2022-07-14 | Outpatient (REF) ==
[~2022-07-14] MED LIST changes: -LOSA100T45 PO; +LOSA100T46 PO
== END ==
LOC: M LAB 09:19